=== PATIENT | male | born 1960 | race African-American/Black ===

== ENCOUNTER 2021-12-10 23:42 | Emergency (ER) | payer OTHER ==
[~2021-12-10] VITALS: Ht 182.9 cm; Wt 113.4 kg
[2021-12-10 23:57] LABS: BASOPHILS % (AUTO) 0.9 % (0.0-5.0); EOSINOPHILS % (AUTO) 3.4 % (0.0-8.0); HEMATOCRIT 45.1 % (42-54); LYMPHOCYTES % (AUTO) 32.9 % (21.0-51.0); MEAN CORPUSCULAR HEMOGLOBIN 28.9 pg (27.0-33.0); MEAN CORPUSCULAR HGB CONC 32.2 g/dL (32.0-36.0); MEAN CORPUSCULAR VOLUME 89.8 fL (79-99); MONOCYTES % (AUTO) 8.7 % (3.0-13.0); NEUTROPHILS % (AUTO) 53.9 % (40.0-77.0); PLATELET COUNT (AUTO) 177 K/uL (130-400); RED BLOOD CELL COUNT(AUTO) 5.02 MIL/uL (4.50-6.20); WHITE BLOOD COUNT (AUTO) 8.8 K/uL (4.8-10.8)
[2021-12-11 00:06] LABS: CREATININE 1.3 mg/dL (0.5-1.5); POTASSIUM 3.7 mmol/L (3.5-5.1)
[2021-12-11 00:10] LABS: ALBUMIN 3.9 g/dL (3.5-5.0); BILIRUBIN,TOTAL 0.3 mg/dL (0.2-1.0); TOTAL PROTEIN, SERUM 7.5 g/dL (6.0-8.3)
[2021-12-11 00:28] LABS: B-TYPE NATRIURETIC PEPTIDE 18 pg/mL (0-100)
[2021-12-11] MEDS ORDERED: MORPHINE 2 MG SYG IVP ONE (04:00)
[2021-12-11] MEDS ORDERED: FUROSEMIDE 40MG VIAL IV ONE (04:00)
[2021-12-11] MEDS ORDERED: IOHEXOL 350 MG/ML 100ML INFUS..BTL IV ONE (05:46)
[2021-12-11 06:41] VITALS: BP 118/82
[2021-12-11] MEDS ORDERED: ONDA4TAB10 PO (06:47)
[2021-12-11] MEDS ORDERED: OMEP20TA2 PO (06:47)
== END 2021-12-11 07:40 | disposition home or self-care (01) ==
LOC: EDH 23:42
DX: R10.9 Unspecified abdominal pain (principal); M79.89 Other specified soft tissue disorders; Z20.822 Contact with and (suspected) exposure to COVID-19; I11.0 Hypertensive heart disease with heart failure; I50.9 Heart failure, unspecified; E11.9 Type 2 diabetes mellitus without complications; F17.200 Nicotine dependence, unspecified, uncomplicated; Z98.890 Other specified postprocedural states
CPT/HCPCS: 36415 ×2; 71045; 71275; 74176; 80053; 83880; 84484 ×2; 85025; 85378; 87635; 87804 ×2; 93005 ×2; 96374; 96375; 99285; C9803; J1940; Q9967

== ENCOUNTER 2022-09-07 10:03 | Emergency (ER) | payer BC ==
[~2022-09-07] VITALS: Ht 182.9 cm; Wt 94.8 kg
[~2022-09-07 10:03] MED LIST: OMEP20TA2 PO; ONDA4TAB10 PO
[2022-09-07 10:33] LABS: APPEARANCE,URINE CLEAR (CLEAR); BILIRUBIN,URINE NEGATIVE (NEGATIVE); COLOR,URINE YELLOW (YELLOW); GLUCOSE, URINE (UA) NEGATIVE (NEGATIVE); KETONES,URINE NEGATIVE (NEGATIVE); LEUKOCYTE ESTERASE ,URINE NEGATIVE Leu/uL (NEGATIVE); NITRATE,URINE NEGATIVE (NEGATIVE); OCCULT BLOOD,URINE NEGATIVE (NEGATIVE); PROTEIN,URINE NEGATIVE (NEGATIVE); UROBILINOGEN,URINE 0.2 mg/dL (0.2-1.0)
[2022-09-07 10:36] LABS: HEMATOCRIT 46.3 % (42-54); MEAN CORPUSCULAR HEMOGLOBIN 28.7 pg (27.0-33.0); MEAN CORPUSCULAR HGB CONC 32.4 g/dL (32.0-36.0); MEAN CORPUSCULAR VOLUME 88.5 fL (79-99); PLATELET COUNT (AUTO) 169 K/uL (130-400); RED BLOOD CELL COUNT(AUTO) 5.23 MIL/uL (4.50-6.20); RED CELL DISTRIBUTION WIDTH 15.7 % (11.0-15.5); WHITE BLOOD COUNT (AUTO) 6.4 K/uL (4.8-10.8)
[2022-09-07 10:45] LABS: CREATININE 1.1 mg/dL (0.5-1.5); POTASSIUM 5.3 mmol/L (3.5-5.1)
[2022-09-07 10:50] LABS: ALBUMIN 3.9 g/dL (3.5-5.0); TOTAL PROTEIN, SERUM 7.8 g/dL (6.0-8.3)
[2022-09-07] MEDS ORDERED: ACETAMINOPHEN 500 MG TABLET PO ONE (11:00)
[2022-09-07 11:13] LABS: BASOPHILS % (MANUAL) 1 % (0-2); EOSINOPHILS % (MANUAL) 4 % (1-6); LYMPHOCYTES % (MANUAL) 34 % (22-44); MAN.DIFF COMMENT-IMPRESSION MANUAL DIFFERENTIAL; MONOCYTES % (MANUAL) 5 % (2-9); PLATELET MORPHOLOGY COMMENT ADEQUATE; SEGMENTED NEUTROPHILS % 56 % (40-70)
[2022-09-07 11:16] LABS: CREATINE KINASE, TOTAL 194 U/L (21-232)
[2022-09-07 11:44] LABS: CRP QUANTITATIVE < 2.00 mg/L (0.00-9.0)
[2022-09-07 13:33] VITALS: BP 140/90
[2022-09-07] MEDS ORDERED: IBUP-2077 PO (13:40)
== END 2022-09-07 14:00 | disposition home or self-care (01) ==
LOC: EDH 10:03
DX: M13.88 Other specified arthritis, other site (principal); M79.631 Pain in right forearm; I11.0 Hypertensive heart disease with heart failure; I50.9 Heart failure, unspecified; E11.9 Type 2 diabetes mellitus without complications; F17.200 Nicotine dependence, unspecified, uncomplicated; Z83.3 Family history of diabetes mellitus; Z95.810 Presence of automatic (implantable) cardiac defibrillator; Z79.899 Other long term (current) drug therapy
CPT/HCPCS: 36415; 71045; 71250; 73090; 73130; 80053; 81003; 82550; 83735; 84484; 85025; 85651; 86140

== ENCOUNTER 2024-06-03 08:36 | Inpatient (IN) | payer BC, OTHER ==
[2024-06-03] VITALS (9 sets, daily range): BP systolic 149–165; BP diastolic 83–98; PULSE 80–92; RESP 18–24; TEMP 97.7; O2SAT 93–95
[~2024-06-03] VITALS: Ht 177.8 cm; Wt 95.3 kg
[~2024-06-03 08:36] MED LIST changes: +IBUP-2077 PO; +ONDA-243 PO; -ONDA4TAB10 PO
--- NOTE | 2024-06-03 09:04 | ERN ---
ED Note History of Present Illness Stated Complaint: COUGH Chief Complaint: Cough Time Seen by MD: 08:39 Dictation: This 63-year-old male with a history of diabetes, hypertension hyperlipidemia and an AICD placed for sudden presents in the emergency department complai aracely of one week of body aches, cough and congestion tactile fever shortness of breath nausea and swelling of the legs. He feels dizzy and states he is not eating well. Urine output is diminished. The sputum is green. He has been constipated. He did do some cocaine yesterday. He says it numbs him up and eases the discomfort. He denies any vomiting or diarrhea. There was no rash. His chest pain is associated with cough. He does note wheezing and shortness of breath. The patient does not take any routine medications for his medical problems. He does not have a local physician. The patient lives in a trailer. He lives with family members but his brother apparently was recently hospitalized. Unrelated complaints. Patient does smoke cigarettes drink alcohol and uses cocaine p.r.n. Allergies: Coded Allergies: varenicline (Unverified Allergy, Unknown, 09/07/22) Home Meds Active Scripts Ibuprofen (Ibuprofen 800 mg Tab) 800 Mg Tab, 800 MG PO Q8H PRN for PAIN, #30 TAB 0 Refills Prov:SINGH LIZARRAGA MD 09/07/22 Omeprazole Magnesium (Prilosec Otc) 20 Mg Tablet.dr, 20 MG PO DAILY, #30 TAB Prov:DEMETRA LOYA MD 12/11/21 Ondansetron (Ondansetron Odt) 4 Mg Tab.rapdis, 8 MG PO Q8H PRN for NAUSEA/VOMITING, #20 TAB Prov:DEMETRA LOYA MD 12/11/21 Past Medical History Past Medical History: Diabetes-Type II, High Cholesterol, Hypertension Surgical History: Pacer/AICD Family History: DM, HTN Social History: Smokers Review of System Dictation All pertinent systems reviewed, negative except as documented in the HPI The ROS is obtained from patient GENERAL/CONSTITUTIONAL: Negative except as documented in HPI. ENT: Negative except as documented in HPI. CARDIOVASCULAR: Negative except as documented in HPI. RESPIRATORY: Negative except as documented in HPI. GASTROINTESTINAL: Negative except as documented in HPI. GENITOURINARY: Negative except as documented in HPI. MUSCULOSKELETAL: Negative except as documented in HPI. SKIN: Negative except as documented in HPI. NEUROLOGIC: Negative except as documented in HPI. Initial Vital Sign VS Vital Signs Date Time Temp Pulse Resp B/P (MAP) Pulse Ox O2 Delivery O2 Flow Rate FiO2 06/03/24 08:38 99.0 92 19 140/84 98 Room Air 0 06/03/24 08:38 21 Physical Exam Dictation VITAL SIGNS: note is made of triage vital signs CONSTITUTIONAL: This is a very uncomfortable constantly coughing gentleman who seems dyspneic due to cough. He is awake, alert, and appropriately interactive. HEAD: Normocephalic, Atraumatic. EYES: Periorbital areas with no swelling, redness, or edema. Lids and lashes are normal. Conjunctival injection is absent. Sclera anicteric. Pupils equal, round, reactive to light. ENT: No nasal discharge noted. Posterior pharynx is without exudate, redness, swelling, masses, or evidence of obstruction. Uvula midline. Mucous membranes dry. Voice is hoarse consistent with laryngitis NECK: Trachea midline, no masses palpated, and no cervical lymphadenopathy. No swelling. Supple, full range of motion without nuchal rigidity. No vertebral point tenderness. No meningismus. CHEST/AXILLA: Normal chest wall appearance and motion. No tenderness. No crepitus. CV: Normal rate, regular rhythm. No murmur. Trace ankle edema. RESPIRATORY:Respiratory rate is normal. Bilateral equal breath sounds with good airflow. Wheezing is noted. No increased work of breathing, no retractions. ABDOMEN: Inspection normal. No distention is appreciated. Bowel sounds are normal. No mass or organomegaly is appreciated. There is no tenderness. No rebound. No rigidity. No voluntary or involuntary guarding. BACK: Inspection is normal. No midline tenderness is appreciated. The patient appears comfortable when moving. : No CVA tenderness or bladder tenderness. SKIN: Warm, dry, with normal turgor. Capillary refill less than 3 seconds. Normal color.No rash. No cellulitis or abscess. No evidence of acute injury. MS/Extremity: There is no calf tenderness. Baseline range of motion is noted in all 4 extremities. There are no deformities. NEURO: Awake and alert, lucid. Facies symmetric and speech is clear. Motor strength 5/5 in all extremities. Sensory grossly intact. PSYCH: Patient is appropriately attentive and cooperative without evidence of hallucination. Results (Laboratory/Radiology) Laboratory/Radiology Laboratory Tests Test 06/03/24 08:51 06/03/24 09:02 Influenza Type A Antigen Negative For Type A Influenza Type B Antigen Negative For Type B SARS-CoV-2, RNA, NAAT NEGATIVE SARS CoV-2 Group A Streptococcus Rapid positive (NEGATIVE) *A White Blood Count 9.0 K/uL (4.8-10.8) Red Blood Count 4.67 MIL/uL (4.50-6.20) Hemoglobin 13.5 g/dL (14.0-18.0) L Hematocrit 40.9 % (42-54) L Mean Corpuscular Volume 87.6 fL (79-99) Mean Corpuscular Hemoglobin 28.9 pg (27.0-33.0) Mean Corpuscular Hemoglobin Concent 33.0 g/dL (32.0-36.0) Red Cell Distribution Width 14.6 % (11.0-15.5) Platelet Count 229 K/uL (130-400) Mean Platelet Volume 9.4 fL (7.5-10.5) Immature Granulocyte % (Auto) 1.2 % (0-1) H Neutrophils (%) (Auto) 62.2 % (40.0-77.0) Lymphocytes (%) (Auto) 18.6 % (21.0-51.0) L Monocytes (%) (Auto) 15.7 % (3.0-13.0) H Eosinophils (%) (Auto) 1.7 % (0.0-8.0) Basophils (%) (Auto) 0.6 % (0.0-5.0) Neutrophils # (Auto) 5.6 K/uL (1.8-7.7) Lymphocytes # (Auto) 1.7 K/uL (1.0-4.8) Monocytes # (Auto) 1.4 K/uL (0.1-1.0) H Eosinophils # (Auto) 0.15 K/uL (0.00-0.70) Basophils # (Auto) 0.05 K/uL (0.00-0.20) Absolute Immature Granulocyte (auto 0.11 K/uL (0-1) Nucleated Red Blood Cells 0.0 % (0.0-0.19) White Cell Morphology Comment See comments Sodium Level 141 mmol/L (136-145) Potassium Level 3.5 mmol/L (3.5-5.1) Chloride Level 103 mmol/L (101-111) Carbon Dioxide Level 28 mmol/L (21-32) Blood Urea Nitrogen 11 mg/dL (7-18) Creatinine 1.0 mg/dL (0.5-1.3) Glomerular Filtration Rate Calc 85 mL/min (>90) Random Glucose 128 mg/dL (70-105) H Total Calcium 9.2 mg/dL (8.5-10.1) Total Bilirubin 0.4 mg/dL (0.2-1.0) Direct Bilirubin 0.1 mg/dL (0.0-0.3) Aspartate Amino Transf (AST/SGOT) 43 U/L (10-37) H Alanine Aminotransferase (ALT/SGPT) 57 U/L (12-78) Alkaline Phosphatase 71 U/L (50-136) Troponin I High Sensitivity 6 ng/L (4-75) B-Type Natriuretic Peptide 55 pg/mL (0-100) Total Protein 7.7 g/dL (6.0-8.3) Albumin 2.8 g/dL (3.5-5.0) L Labs Reviewed?: Yes EKG Comment: Time reviewed: 9:07 a.m. EKG number; 1 Rate and rhythm: Sinus rhythm at 83 beats per minute [place]:normal Morphology:Normal OR interval: normal QT interval: normal ST/[place]: normal Impression: normal sinus rhythm without STEMI or ectopy Comparison EKG: none EKG INTERPRETATION by Dr. Singh Lizarraga ED Course ED Course Orders Procedure Category Date Status Time Covid Rna Naat LAB 06/03/24 Complete 08:48 Rapid (Group A Strep) LAB 06/03/24 Complete 08:48 Influenza Type A & B, LAB 06/03/24 Complete Rapid 08:48 12 Lead Ekg Tracing- EKG 06/03/24 Complete Technical 08:57 Cbc With Differential LAB 06/03/24 Complete 08:57 B-Type Natriuretic LAB 06/03/24 Complete Peptide 08:57 Basic Metabolic Panel LAB 06/03/24 Complete 08:57 Hepatic Function Panel LAB 06/03/24 Complete 08:57 Troponin I High LAB 06/03/24 Complete Sensitivity 08:57 Chest 1vw RAD 06/03/24 Resulted 08:57 Ipratropium/Albuterol PHA 06/03/24 Complete Neb (Duoneb) 09:00 Benzonatate 100 Mg PHA 06/03/24 Complete Capsule (Tessalon 100 09:00 Ceftriaxone 1g Vial PHA 06/03/24 Complete (Rocephine 1g Inj) 10:30 Current Medications Medications (Trade) Dose Ordered Sig/Rigo Route PRN Reason Start Time Stop Time Status Last Admin Dose Admin Albuterol (DUOneb) 1 UDVIAL ONCE ONCE IH 06/03/24 09:00 06/03/24 09:01 DC 06/03/24 09:11 Benzonatate (Tessalon 100mg Caps) 200 mg ONCE ONCE PO 06/03/24 09:00 06/03/24 09:01 DC 06/03/24 09:07 Ceftriaxone Sodium (ROCEphine 1G INJ) 1 gm ONCE ONCE IVPB 06/03/24 10:30 06/03/24 10:31 DC 06/03/24 10:16 Vital Signs Date Time Temp Pulse Resp B/P (MAP) Pulse Ox O2 Delivery O2 Flow Rate FiO2 06/03/24 10:36 98.8 91 18 151/88 94 Room Air* 0 21 06/03/24 10:29 91 18 149/98 94 Room Air* 0 21 06/03/24 09:14 92 24 06/03/24 08:38 99.0 92 19 140/84 97 Room Air* 0 21 06/03/24 08:38 99.0 92 19 140/84 98 Room Air 0 Medical Decision Making MDM INITIAL IMPRESSION Initial history and physical concerning for viral infection, pulmonary injury due to use of cocaine, pneumonia, congestive heart failure, Contributing medical problems: Patient does have untreated medical problems increasing his risk for cardiovascular disease I have reviewed the triage nursing notes and vital signs. O2 saturation is reported to be normal. There was no tachycardia or fever Initial plan: Laboratory screening x-ray symptomatic therapy for intractable cough DATA REVIEW I have reviewed additional NN, repeat VS, and monitoring where indicated. Heart rate, blood pressure, and O2 saturation are acceptable. Vanessa diagnostic results: Patient had a positive strep and has a blood sugar of 128. Otherwise labs are unremarkable but there is a left-sided pneumonia Other independent historian: none Review of external data: None. ED COURSE Interventions: Patient was started on antibiotics and given DuoNeb with improvement. Reassessment: O2 sats remaining stable DISPOSITION Final diagnostic impression: Strep pneumonia I discussed my findings, clinical impression and treatment recommendations with the patient. I have reviewed the social factors contributing to the patient's presentation and disposition planning. My final plan for disposition was made based upon clinical findings, response to treatment and discussion with the patient regarding management options. At 11:20 a.m. I discussed the case with the the hospitalist to arrange admission Hospitalization is indicated due to high risk of short term progression, complication, morbidity or mortality related to the current diagnosis The patient will be admitted for further management of pneumonia The patient and family have been advised regarding the reason for admission Questions were invited and answered in layman's terms. This dictation was prepared using medical voice recognition software. Occasional voice recognition errors may occur. When identified, these errors have been corrected. While every attempt is made to correct errors during dictation, errors may still exist. DX & DISP Disposition: Observation Decision to Admit Date: Jun 03, 2024 Decision to Admit Time: 11:58 Departure Impression: Primary Impression: Streptococcal pneumonia Additional Impression: Wheezing Condition: Stable Referrals: SELF,REFERRAL (PCP) SINGH LIZARRAGA MD Jun 03, 2024 09:04
--- NOTE | 2024-06-03 09:05 | EKG ---
[facility] Test Date: 2024-06-03 Test Time: 08:59:30 Pat Name: LOLY HARTLEY Department: [facility] Room: ED Gender: M Telesales Specialist: [id number] : 1960 Requested By: SINGH LIZARRAGA Order Number: [id number] Reading MD: Jostin Patterson Measurements Intervals [place] Rate: 83 P: 66 AR: 158 QRS: -1 QRSD: 82 T: 19 QT: 387 QTc: 456 Interpretive Statements Sinus rhythm Compared to ECG 12/11/2021 05:10:31 Atrial-paced complex(es) or rhythm no longer present Ventricular-paced complex(es) or rhythm no longer present Electronically Signed On 06-03-2024 15:46:31 [employer]NATIONAL MARKETING INTERN by Jostin Patterson Please click the below link to view image of tracing.
[2024-06-03] MEDS: BENZONATATE 100 MG CAPSULE PO ONE (09:07)
[2024-06-03 09:11] LABS: BASOPHILS # (AUTO) 0.05 K/uL (0.00-0.20); BASOPHILS % (AUTO) 0.6 % (0.0-5.0); EOSINOPHILS # (AUTO) 0.15 K/uL (0.00-0.70); EOSINOPHILS % (AUTO) 1.7 % (0.0-8.0); HEMATOCRIT 40.9 % (42-54); IMMATURE GRANULOCYTE ABSOLUTE 0.11 K/uL (0-1); LYMPHOCYTES # (AUTO) 1.7 K/uL (1.0-4.8); LYMPHOCYTES % (AUTO) 18.6 % (21.0-51.0); MEAN CORPUSCULAR HEMOGLOBIN 28.9 pg (27.0-33.0); MEAN CORPUSCULAR VOLUME 87.6 fL (79-99); MONOCYTES # (AUTO) 1.4 K/uL (0.1-1.0); MONOCYTES % (AUTO) 15.7 % (3.0-13.0); NEUTROPHILS # (AUTO) 5.6 K/uL (1.8-7.7); NEUTROPHILS % (AUTO) 62.2 % (40.0-77.0); PLATELET COUNT (AUTO) 229 K/uL (130-400); RED BLOOD CELL COUNT(AUTO) 4.67 MIL/uL (4.50-6.20); RED CELL DISTRIBUTION WIDTH 14.6 % (11.0-15.5)
[2024-06-03] MEDS: IpraTROPium/alBUTERol SULFATE 3 ML SOLUTION IH ONE (09:11)
[2024-06-03 09:19] LABS: POTASSIUM 3.5 mmol/L (3.5-5.1)
[2024-06-03 09:25] LABS: SARS-CoV-2, RNA, NAAT NEGATIVE SARS CoV-2 (NEGATIVE)
[2024-06-03 09:28] LABS: ALBUMIN 2.8 g/dL (3.5-5.0); BILIRUBIN,DIRECT 0.1 mg/dL (0.0-0.3); BILIRUBIN,TOTAL 0.4 mg/dL (0.2-1.0); TOTAL PROTEIN, SERUM 7.7 g/dL (6.0-8.3)
[2024-06-03 09:29] LABS: INFLUENZA TYPE A Negative For Type A (NEGATIVE); INFLUENZA TYPE B Negative For Type B (NEGATIVE)
[2024-06-03 09:38] LABS: B-TYPE NATRIURETIC PEPTIDE 55 pg/mL (0-100)
[2024-06-03 10:03] LABS: RAPID GROUP A STREP positive (NEGATIVE)
[2024-06-03] MEDS: cefTRIAXone 1G VIAL IVPB ONE (10:16)
--- NOTE | 2024-06-03 10:20 | HMCIMG ---
CHEST 1VW REASON: cough COMPARISON: 09/07/2022 FINDINGS: There is left lower lobe infiltrate consistent with pneumonia. There is mild patchy infiltrate in the right lung base. Heart size is normal. There is no vascular congestion or pleural effusion. Pacemaker is noted. IMPRESSION: 1. Left lobe infiltrate consistent with pneumonia, there is patchy infiltrate in the right base as well.
[2024-06-03] MEDS ORDERED: acetaMINOPHEN 325 MG TAB PO PRN (13:00)
[2024-06-03] MEDS ORDERED: NITROGLYCERIN 0.4 MG SL TAB SL PRN (13:00)
[2024-06-03] MEDS ORDERED: guaiFENesin-DM 200/20MG 10ML PO PRN (13:00)
[2024-06-03] MEDS: cefTRIAXone 1G VIAL IV SCH (13:00)
[2024-06-03] MEDS ORDERED: LACTULOSE 20 GM/30 ML UDCUP PO PRN (13:00)
[2024-06-03] MEDS: AZITHROMYCIN 500MG+NS 250ML 250 ML IV SCH (13:34)
[2024-06-03] MEDS: ALBUTEROL 0.083% 2.5 MG/3 ML INH IH SCH (14:00)
[2024-06-03] MEDS: BENZONATATE 100 MG CAPSULE PO SCH (14:02)
[2024-06-03] MEDS: acetaMINOPHEN 325 MG TAB PO PRN (14:35)
[2024-06-03] MEDS ORDERED: DEXTROSE 50%-WATER 50 ML DISP.SYRIN IV PRN (15:00)
[2024-06-03] MEDS ORDERED: GLUCAGON 1MG KIT 1 MG ML IM PRN (15:00)
--- NOTE | 2024-06-03 16:15 | HP ---
[facility] HISTORY AND PHYSICAL Date of Service: Jun 03, 2024 Time of Service: 15:00 HISTORY OF PRESENT ILLNESS: The patient is a 63-year-old male with a past medical history of type 2 diabetes mellitus, hypertension, hyperlipidemia, chronic obstructive pulmonary disease, chronic smoker, AICD placement in September 21, 2017, bipolar disorder presented to emergency department via ambulance with a chief complaints of cough, fever, and body aches. He has been experiencing fever with chills, headaches, and prod uctive sputum greenish in color since past 2 days. He also reported chest and shoulder tightness radiating to the back which is making him difficult to deep breathe. He also has been feeling dizzy and is not eating well. Per patient, he had some cocaine yesterday as cocaine numbs him up and eases that is discomfort. He denies any vomiting, diarrhea, episodes of fall. On Present ation, he was noted afebrile and vitals were within normal limits. Chest x-ray showed left lobe infiltrate consistent with pneumonia and patchy infiltrate in the right base as well. Additionally, he was tested positive for group a Streptococcus. Laboratory findings including CBC, BMP did not show any abnormalities. The patient was examined in ED 12. He is lying on the bed with his daughter on bedside. He is in the state of somnolence, has not been providing full answers, saying that he is tired and has a chest pressure. He also mumbles that he has been having some blood in the urine. The daughter is not aware of his medical c onditions and she attempted to reach out to the relatives in order to get his medical history, without any successful attempt. Has been noncompliant with his office visits lately, misses the doses of the routine medications and sent a text message to his brother yesterday saying that he does not feel good and has infection in the foot. The patient lives alone in the trailer and has a stumbling gait since past 1-2 weeks. Very limited history was able to collect from the patient. The patient will be admitted on the medical surgical floor for the management of streptococcal pneumonia. REVIEW OF SYSTEMS CONSTITUTIONAL: c/o fever, chills, no night sweats. No unintentional weight loss reported. NEUROLOGICAL: Denies headache, amaurosis fugax, motor weakness, sensory deficit, vertigo/spinning sensation, gait abnormalities, or tremors. ENT: No hearing loss, otalgia, otorrhea, rhinitis, rhinorrhea, hoarseness, or sore throat. CARDIOVASCULAR: Denies any exertional angina, dyspnea on exertion, orthopnea, paroxysmal nocturnal dyspnea, palpitations, life-threatening arrhythmias, claudication. PULMONARY: c/o shortness of breath, cough, phlegm/sputum, no hemoptysis, pleuritic chest pain. SLEEP: Denies morning headaches, daytime somnolence or napping. Denies difficulty falling asleep, staying asleep, waking from sleep. Denies knowledge of snoring. GASTROINTESTINAL: Denies any type of dysphagia to either liquids or solids. D enies nausea, vomiting, pyrosis, early satiety, abdominal pain, diarrhea, constipation, or changes in stool consistency or caliber. Denies coffee-ground emesis, hematemesis, hematochezia, or melanotic stools. GENITOURINARY: Denies frequency, urgency, nocturia, hematuria or incontinence (Storage/Irritative symptoms.) Low urinary stream, straining to void, urinary intermittency or hesitancy, splitting of the voiding stream, terminal dribbling. ENDOCRINOLOGIC: Denies polyuria, polydipsia, polyphagia or heat/cold intolerances. HEMATOLOGIC: Denies thrombophilia/previous clots, or coagulopathy/bleeding disorders. ONCOLOGIC: Denies personal history of malignancy. DERMATOLOGIC: Denies rashes or pruritus. PSYCHIATRIC: Denies any suicidal or homicidal ideation. Denies hallucinations. PAST MEDICAL HISTORY: Type 2 diabetes Mellitus Hypertension Hyperlipidemia AICD placement in September 2017 Chronic obstructive pulmonary disease Bipolar disorder PAST SURGICAL HISTORY: AICD placement in September 2017 PAST SOCIAL HISTORY: Chronic cigarette smoker, 1 PPD since age of 21 Social drinker On and off cocaine user FAMILY HISTORY: The patient and daughter could not provide any significant past medical history Coded Allergies: varenicline (Unverified Allergy, Unknown, 09/07/22) PHYSICAL EXAM GENERAL APPEARANCE: Somnolent, slightly disoriented, in no acute cardiopulmonary distress. NEUROLOGICAL: Cranial nerves II-XII grossly intact. Motor is 5/5 in bilateral upper and lower extremities proximal to distal. No sensory deficits. HEENT: Face is symmetric. Pupils are equal and reactive. Extraocular movements are intact. NECK: Supple. No JVD. No thyromegaly. No submental, submandibular, pre-/postauricular, occipital or supraclavicular lymphadenopathy. CHEST: Slightly Decreased heart sounds on left lower lobe, Normal chest expansion. No Telemetry. LUNGS: Absence of any rales, rhonchi or any wheezing. CARDIOVASCULAR: Regular. S1 and S2 normal. No appreciable rubs, murmurs or gallops. ABDOMEN: Soft, nontender, and nondistended. There is no rebound, voluntary guarding, or rigidity. : Deferred. No [place]. EXTREMITIES: Non-edematous and not cyanotic. No clubbing. Good capillary refill. SKIN: crackled nails on bilateral lower extremities, dry feets. Vital Sign (Last 24 Hours) 06/03/24 14:39 Temp 98.8 Pulse 91 Resp 20 B/P (MAP) 149/96 Pulse Ox 96 O2 Delivery Room Air* O2 Flow Rate 0 FiO2 21 LABS: Laboratory: Test 06/03/24 13:58 06/03/24 09:02 06/03/24 08:51 Range/Units Whole Blood Glucose 261 H 70-110 MG/DL White Blood Count 9.0 4.8-10.8 K/uL Red Blood Count 4.67 4.50-6.20 MIL/uL Hemoglobin 13.5 L 14.0-18.0 g/dL Hematocrit 40.9 L 42-54 % Mean Corpuscular Volume 87.6 79-99 fL Mean Corpuscular Hemoglobin 28.9 27.0-33.0 pg Mean Corpuscular Hemoglobin Concent 33.0 32.0-36.0 g/dL Red Cell Distribution Width 14.6 11.0-15.5 % Platelet Count 229 130-400 K/uL Mean Platelet Volume 9.4 7.5-10.5 fL Immature Granulocyte % (Auto) 1.2 H 0-1 % Neutrophils (%) (Auto) 62.2 40.0-77.0 % Lymphocytes (%) (Auto) 18.6 L 21.0-51.0 % Monocytes (%) (Auto) 15.7 H 3.0-13.0 % Eosinophils (%) (Auto) 1.7 0.0-8.0 % Basophils (%) (Auto) 0.6 0.0-5.0 % Neutrophils # (Auto) 5.6 1.8-7.7 K/uL Lymphocytes # (Auto) 1.7 1.0-4.8 K/uL Monocytes # (Auto) 1.4 H 0.1-1.0 K/uL Eosinophils # (Auto) 0.15 0.00-0.70 K/uL Basophils # (Auto) 0.05 0.00-0.20 K/uL Absolute Immature Granulocyte (auto 0.11 0-1 K/uL Nucleated Red Blood Cells 0.0 0.0-0.19 % White Cell Morphology Comment See comments Sodium Level 141 136-145 mmol/L Potassium Level 3.5 3.5-5.1 mmol/L Chloride Level 103 101-111 mmol/L Carbon Dioxide Level 28 21-32 mmol/L Blood Urea Nitrogen 11 7-18 mg/dL Creatinine 1.0 0.5-1.3 mg/dL Glomerular Filtration Rate Calc 85 >90 mL/min Random Glucose 128 H 70-105 mg/dL Total Calcium 9.2 8.5-10.1 mg/dL Total Bilirubin 0.4 0.2-1.0 mg/dL Direct Bilirubin 0.1 0.0-0.3 mg/dL Aspartate Amino Transf (AST/SGOT) 43 H 10-37 U/L Alanine Aminotransferase (ALT/SGPT) 57 12-78 U/L Alkaline Phosphatase 71 50-136 U/L Troponin I High Sensitivity 6 4-75 ng/L B-Type Natriuretic Peptide 55 0-100 pg/mL Total Protein 7.7 6.0-8.3 g/dL Albumin 2.8 L 3.5-5.0 g/dL Influenza Type A Antigen Negative For Type A NEGATIVE Influenza Type B Antigen Negative For Type B NEGATIVE SARS-CoV-2, RNA, NAAT NEGATIVE SARS CoV-2 NEGATIVE Group A Streptococcus Rapid positive *A NEGATIVE Current Medications Medications (Trade) Dose Ordered Sig/Rigo Route PRN Reason Start Time Stop Time Status Last Admin Dose Admin Acetaminophen (TYLenol 325MG TAB) 650 mg Q4H PRN PO MILD PAIN (1-3) 06/03/24 13:00 07/03/24 12:59 06/03/24 14:35 650 MG Acetaminophen (TYLenol 325MG TAB) 650 mg Q6H PRN PO TEMPERATURE GREATER THAN 101.5 06/03/24 13:00 07/03/24 12:59 Albuterol Sulfate (Proventil 0.083% 2.5mg/3ml) 2.5 mg [id number] IH 06/03/24 14:00 07/03/24 13:59 06/03/24 14:00 2.5 MG Azithromycin 250 ml @ 250 mls/hr Q24H IV 06/03/24 13:00 06/13/24 12:59 06/03/24 13:34 250 MLS/HR Benzonatate (Tessalon 100mg Caps) 200 mg TID PO 06/03/24 14:00 07/03/24 13:59 06/03/24 14:02 200 MG Ceftriaxone Sodium (ROCEphine 1G INJ) 1 gm Q24H IV 06/03/24 13:00 06/13/24 12:59 Dextrose (D50w) 50 ml AD PRN IV HYPOGLYCEMIA PROTOCOL 06/03/24 15:00 07/03/24 14:59 Enoxaparin Sodium (Lovenox) 30 mg DAILY SQ 06/04/24 09:00 07/04/24 08:59 Famotidine (Pepcid 20mg Tab) 20 mg BID PO 06/03/24 21:00 07/03/24 20:59 Glucagon (Glucagon 1mg Kit) 1 mg AD PRN IM HYPOGLYCEMIA PROTOCOL 06/03/24 15:00 07/03/24 14:59 Guaifenesin/ Dextromethorphan (RobiTUSSin DM 200/20MG 10ML) 10 ml Q4H PRN PO COUGH 06/03/24 13:00 07/03/24 12:59 Insulin Human Regular (humuLIN R 100 UNIT/ML 3ML) INSULIN SLIDING SCAL... ACHS SQ 06/03/24 16:30 07/03/24 16:29 Lactulose (Constulose 20gm/ 30ml Udcup) 20 gm BID PRN PO CONSTIPATION 06/03/24 13:00 07/03/24 12:59 Morphine Sulfate (morPHINE 2MG SYG) 2 mg Q4H PRN IV MODERATE PAIN (4-6) 06/03/24 13:00 06/10/24 12:59 Nitroglycerin (Nitrostat) 0.4 mg PROTOCOL PRN SL CHEST PAIN 06/03/24 13:00 07/03/24 12:59 DIAGNOSTICS / RADIOLOGY: [place] [id number] [id number] IMAGING REPORT Signed PATIENT: OLLY HARTLEY MR#: [id number] : 1960 SEX: M AGE: 63 LOCATION: [facility] ORDER 8 STATUS: REG ER REPORT#: [id number] SERVICE REASON: cough ORDERING PHYSICIAN: SINGH LIZARRAGA MD PROCEDURE: CXR1VW - CHEST 1VW CHEST 1VW REASON: cough COMPARISON: 09/07/2022 FINDINGS: There is left lower lobe infiltrate consistent with pneumonia. There is mild patchy infiltrate in the right lung base. Heart size is normal. There is no vascular congestion or pleural effusion. Pacemaker is noted. IMPRESSION: 1. Left lobe infiltrate consistent with pneumonia, there is patchy infiltrate in the right base as well. DICTATED BY: LONDON MCWILLIAMS MD DATE: 06/03/24 1017 ELECTRONICALLY SIGNED BY: LONDON MCWILLIAMS MD DATE: 06/03/24 1020 ASSESSMENT: Possible Community Acquired Pneumonia, POA Group A Streptococcal infection, POA Chronic obstructive pulmonary disease Metabolic encephalopathy Chronic smoker Hypertension Type 2 diabetes mellitus Hyperlipidemia Possible CHF, AICD placement in January 2018 PLAN: The patient will be admitted on the medical surgical floor Possible Community Acquired Pneumonia, POA Group A Streptococcal infection, POA Chronic obstructive pulmonary disease, POA * Start on Rocephin1 g IV Q 24 * Start on azithromycin 500 mg IV Q 24 * Gram stain with respiratory culture was ordered. Follow up when the results are available. * Albuterol breathing treatment q.4 p.r.n. for shortness of breath * Robitussin DM q.4 p.r.n. for cough * Tessalon 100 mg t.i.d. p.r.n. for cough * Aspiration precautions Type 2 diabetes mellitus * Start on insulin sliding scale for hyperglycemia * Hypoglycemia per protocol * Start on heart healthy diet * Monitor intake and output * Lactulose 20 g b.i.d. p.r.n. for constipation * Lovenox 30 mg subQ daily for DVT prophylaxis * Home medications are yet to reconciled. The nurse was informed to reconcile home medications. * Urinalysis and urine drug screening are pending. Follow up on the results are available * Morning labs: CBC, BMP, hemoglobin A1c We will monitor patient's symptoms vitals closely. We will plan disposition in 24-48 hours if the clinical condition improves. ADVANCED CARE PLANNING 1. Which of the following were discussed? Hospice Care - Yes / No Therapeutic options - Yes / No Advance Directives - Yes / No Other discussions - 2. Discussed with who? The patient's daughter 3. Voluntary nature of this service was explained to the patient? Yes / No 4. Amount of time spent - 25 minutes ATTESTATION BY PHYSICIAN I have seen and examined the patient. I reviewed the documentation, medical decision making, and treatment plan as noted by the resident provider above. I a gree with the findings and plan of care. Josette Garcia MD, MANALI MD Jun 03, 2024 16:15
[2024-06-03] MEDS: INSULIN humuLIN R 100 UNIT/ML 3ML SQ SCH (16:33)
--- NOTE | 2024-06-03 19:25 | NUR ---
REPORT GIVEN TO JULIO VICKERS AT THIS TIME.
[2024-06-03] MEDS: FAMOTIDINE 20MG TAB PO SCH (21:10)
[2024-06-03] MEDS: morPHINE 2 MG SYG IV PRN (21:38)
[2024-06-03 22:28] LABS: APPEARANCE,URINE CLEAR (CLEAR); BILIRUBIN,URINE NEGATIVE (NEGATIVE); COLOR,URINE YELLOW (YELLOW); GLUCOSE, URINE (UA) NEGATIVE (NEGATIVE); KETONES,URINE NEGATIVE (NEGATIVE); LEUKOCYTE ESTERASE ,URINE NEGATIVE Leu/uL (NEGATIVE); NITRATE,URINE NEGATIVE (NEGATIVE); OCCULT BLOOD,URINE NEGATIVE (NEGATIVE); PH,URINE 6.5 (5.0-8.0); PROTEIN,URINE 20 mg/dL (NEGATIVE); UROBILINOGEN,URINE 6 mg/dL (0.2-1.0)
[2024-06-03 22:30] LABS: ADD UA MICROSCOPIC YES
[2024-06-03 22:31] LABS: BACTERIA,URINE RARE /HPF (None Seen); MUCUS,URINE RARE LPF (None Seen); WBC,URINE 0-1 /HPF (0-1)
[2024-06-03 22:35] LABS: AMPHET/METH SCREEN,URINE NEGATIVE (NEGATIVE); BARBITURATE SCREEN, URINE NEGATIVE (NEGATIVE); BENZODIAZEPINES SCREEN,URINE NEGATIVE (NEGATIVE); CANNABINOID SCREEN,URINE NEGATIVE (NEGATIVE); COCAINE SCREEN,URINE POSITIVE (NEGATIVE); OPIATE SCREEN,URINE NEGATIVE (NEGATIVE); PHENCYCLIDINE SCREEN,URINE NEGATIVE (NEGATIVE)
[2024-06-04] VITALS (9 sets, daily range): BP systolic 145–158; BP diastolic 85–96; PULSE 81–100; RESP 17–21; TEMP 98.4–99.3; O2SAT 92–95
[2024-06-04 05:47] LABS: BASOPHILS # (AUTO) 0.06 K/uL (0.00-0.20); BASOPHILS % (AUTO) 0.7 % (0.0-5.0); EOSINOPHILS # (AUTO) 0.17 K/uL (0.00-0.70); EOSINOPHILS % (AUTO) 1.9 % (0.0-8.0); HEMATOCRIT 42.4 % (42-54); LYMPHOCYTES # (AUTO) 1.2 K/uL (1.0-4.8); LYMPHOCYTES % (AUTO) 13.4 % (21.0-51.0); MEAN CORPUSCULAR HEMOGLOBIN 28.7 pg (27.0-33.0); MEAN CORPUSCULAR VOLUME 86.9 fL (79-99); MONOCYTES # (AUTO) 0.9 K/uL (0.1-1.0); MONOCYTES % (AUTO) 9.5 % (3.0-13.0); NEUTROPHILS # (AUTO) 6.6 K/uL (1.8-7.7); NEUTROPHILS % (AUTO) 73.4 % (40.0-77.0); PLATELET COUNT (AUTO) 269 K/uL (130-400); RED BLOOD CELL COUNT(AUTO) 4.88 MIL/uL (4.50-6.20); RED CELL DISTRIBUTION WIDTH 14.8 % (11.0-15.5)
[2024-06-04 05:59] LABS: POTASSIUM 3.2 mmol/L (3.5-5.1)
[2024-06-04 06:08] LABS: HEMOGLOBIN A1C 6.4 % (4.0-6.0)
[2024-06-04] MEDS: ENOXAPARIN SODIUM 30 MG/0.3 ML SQ SCH (08:20)
[2024-06-04] MEDS ORDERED: LISINOPRIL 2.5 MG TABLET PO SCH (09:00)
--- NOTE | 2024-06-04 11:53 | PN ---
[facility] PROGRESS NOTE Date of Service: Jun 04, 2024 Time of Service: 11:34 SUBJECTIVE: The patient is a 63-year-old male with a past medical history of type 2 diabetes mellitus, hypertension, hyperlipidemia, chronic obstructive pulmonary disease, chronic smoker, AICD placement in September 21, 2017, bipolar disorder presented to emergency department via ambulance with a chief complaints of cough, fever, and body aches. He was experiencing fever with chills, headaches, and productive sputum greenish in color since past 2 days. He also reported chest and shoulder tightness radiating to the back which is making him difficult to deep breathe. He also has been feeling dizzy and is not eating well. Per patient, he had some cocaine as cocaine numbs him up and eases that is discomfort. Chest x-ray showed left lobe infiltrate consistent with pneumonia and patchy infiltrate in the right base as well. Additionally, he was tested positive for group a Streptococcus.He was in the state of somnolence in ED, said that he is tired and has a chest pressure. He also mumbles that he has been having some blood in the urine.Has been noncompliant with his office visits lately. The patient lives alone in the trailer and has a stumbling gait since past 1-2 weeks. Very limited history was able to collect from the patient. The patient was admitted on the medical surgical floor for the management of streptococcal pneumonia. 06/04/24- The patient was examined today at bedside. He is more alert, awake and oriented as compared to yesterday. His symptoms have been improved and he is breathing well on room air. He has noticed blood in the urine in the past, that has been on and off and also dribbles at night. Additionally, he is c/o neck pain since yesterday. He has been running slighly hypertensive with SBP in 140s. He does not see any PCP since his insurance changed and did not bother to figure out who falls under his insurance and asking for assistance. He says he has been ignoring the symptoms for 2 weeks and did not visit any provider as he is not the person who likes to see the doctor unless it is severe. Significant labs: Potassium 3.2, random blood glucose 213, toxicology positive for cocaine We will monitor his vitals, order PT evaluation today. Respiratory culture with gram stain is pending. REVIEW OF SYSTEMS CONSTITUTIONAL: c/o fever, chills, no night sweats. No unintentional weight loss reported. NEUROLOGICAL: Denies headache, amaurosis fugax, motor weakness, sensory deficit, vertigo/spinning sensation, gait abnormalities, or tremors. ENT: No hearing loss, otalgia, otorrhea, rhinitis, rhinorrhea, hoarseness, or sore throat. CARDIOVASCULAR: Denies any exertional angina, dyspnea on exertion, orthopnea, paroxysmal nocturnal dyspnea, palpitations, life-threatening arrhythmias, claudication. PULMONARY: c/o shortness of breath, cough, phlegm/sputum, no hemoptysis, pleuritic chest pain. SLEEP: Denies morning headaches, daytime somnolence or napping. Denies difficulty falling asleep, staying asleep, waking from sleep. Denies knowledge of snoring. GASTROINTESTINAL: Denies any type of dysphagia to either liquids or solids. Denies nausea, vomiting, pyrosis, early satiety, abdominal pain, diarrhea, constipation, or changes in stool consistency or caliber. Denies coffee-ground emesis, hematemesis, hematochezia, or melanotic stools. GENITOURINARY: Denies frequency, urgency, nocturia, hematuria or incontinence (Storage/Irritative symptoms.) Low urinary stream, straining to void, urinary intermittency or hesitancy, splitting of the voiding stream, terminal dribbling. ENDOCRINOLOGIC: Denies polyuria, polydipsia, polyphagia or heat/cold intolerances. HEMATOLOGIC: Denies thrombophilia/previous clots, or coagulopathy/bleeding disorders. ONCOLOGIC: Denies personal history of malignancy. DERMATOLOGIC: Denies rashes or pruritus. PSYCHIATRIC: Denies any suicidal or homicidal ideation. Denies hallucinations. PHYSICAL EXAM GENERAL APPEARANCE: Somnolent, slightly disoriented, in no acute cardiopulmonary distress. NEUROLOGICAL: Cranial nerves II-XII grossly intact. Motor is 5/5 in bilateral upper and lower extremities proximal to distal. No sensory deficits. HEENT: Face is symmetric. Pupils are equal and reactive. Extraocular movements are intact. NECK: Supple. No JVD. No thyromegaly. No submental, submandibular, pre- /postauricular, occipital or supraclavicular lymphadenopathy. CHEST: Slightly Decreased heart sounds on left lower lobe, Normal chest expansion. No Telemetry. LUNGS: Absence of any rales, rhonchi or any wheezing. CARDIOVASCULAR: Regular. S1 and S2 normal. No appreciable rubs, murmurs or gallops. ABDOMEN: Soft, nontender, and nondistended. There is no rebound, voluntary guarding, or rigidity. : Deferred. No Moreno. EXTREMITIES: Non-edematous and not cyanotic. No clubbing. Good capillary refill. SKIN: crackled nails on bilateral lower extremities, dry feets. Vital Signs (last 8hr) Date Time Temp Pulse Resp B/P (MAP) Pulse Ox O2 Delivery O2 Flow Rate FiO2 06/04/24 10:32 92 21 06/04/24 08:00 92 Room Air* 0 21 06/04/24 06:58 89 20 N/A Room Air 21 06/04/24 06:58 89 21 06/04/24 04:00 98.6 100 17 152/92 92 Room Air 21 LABS: Laboratory: Test 06/04/24 05:59 06/04/24 05:38 06/03/24 21:30 06/03/24 09:02 Range/Units Whole Blood Glucose 231 #H 70-110 MG/DL White Blood Count 9.0 4.8-10.8 K/uL Red Blood Count 4.88 4.50-6.20 MIL/uL Hemoglobin 14.0 14.0-18.0 g/dL Hematocrit 42.4 42-54 % Mean Corpuscular Volume 86.9 79-99 fL Mean Corpuscular Hemoglobin 28.7 27.0-33.0 pg Mean Corpuscular Hemoglobin Concent 33.0 32.0-36.0 g/dL Red Cell Distribution Width 14.8 11.0-15.5 % Platelet Count 269 130-400 K/uL Mean Platelet Volume 9.1 7.5-10.5 fL Immature Granulocyte % (Auto) 1.1 H 0-1 % Neutrophils (%) (Auto) 73.4 40.0-77.0 % Lymphocytes (%) (Auto) 13.4 L 21.0-51.0 % Monocytes (%) (Auto) 9.5 3.0-13.0 % Eosinophils (%) (Auto) 1.9 0.0-8.0 % Basophils (%) (Auto) 0.7 0.0-5.0 % Neutrophils # (Auto) 6.6 1.8-7.7 K/uL Lymphocytes # (Auto) 1.2 1.0-4.8 K/uL Monocytes # (Auto) 0.9 0.1-1.0 K/uL Eosinophils # (Auto) 0.17 0.00-0.70 K/uL Basophils # (Auto) 0.06 0.00-0.20 K/uL Absolute Immature Granulocyte (auto 0.10 0-1 K/uL Nucleated Red Blood Cells 0.0 0.0-0.19 % Sodium Level 142 136-145 mmol/L Potassium Level 3.2 L 3.5-5.1 mmol/L Chloride Level 105 101-111 mmol/L Carbon Dioxide Level 28 21-32 mmol/L Blood Urea Nitrogen 10 7-18 mg/dL Creatinine 1.0 0.5-1.3 mg/dL Glomerular Filtration Rate Calc 85 >90 mL/min Random Glucose 213 #H 70-105 mg/dL Hemoglobin A1c 6.4 H 4.0-6.0 % Estimated Average Glucose (eAG) 137 H 70-126 mg/dL Total Calcium 8.8 8.5-10.1 mg/dL Urine Color YELLOW YELLOW Urine Appearance CLEAR CLEAR Urine pH 6.5 5.0-8.0 Urine Specific [place] 1.018 1.001-1.031 Urine Protein 20 H NEGATIVE mg/dL Urine Glucose (UA) NEGATIVE NEGATIVE mg/dL Urine Ketones NEGATIVE NEGATIVE mg/dL Urine Occult Blood NEGATIVE NEGATIVE Urine Nitrate NEGATIVE NEGATIVE Urine Bilirubin NEGATIVE NEGATIVE mg/dL Urine Urobilinogen 6 H 0.2-1.0 mg/dL Urine Leukocyte Esterase NEGATIVE NEGATIVE Caprice/uL Urine RBC 6-10 H 0-1 /HPF Urine WBC 0-1 0-1 /HPF Urine Bacteria RARE None Seen /HPF Urine Opiates Screen NEGATIVE NEGATIVE Urine Barbiturates Screen NEGATIVE NEGATIVE Urine Phencyclidine Screen NEGATIVE NEGATIVE Urine Amphetamines Screen NEGATIVE NEGATIVE Urine Benzodiazepines Screen NEGATIVE NEGATIVE Urine Cocaine Screen POSITIVE H NEGATIVE Urine Marijuana (THC) Screen NEGATIVE NEGATIVE White Cell Morphology Comment See comments Total Bilirubin 0.4 0.2-1.0 mg/dL Direct Bilirubin 0.1 0.0-0.3 mg/dL Aspartate Amino Transf (AST/SGOT) 43 H 10-37 U/L Alanine Aminotransferase (ALT/SGPT) 57 12-78 U/L Alkaline Phosphatase 71 50-136 U/L Troponin I High Sensitivity 6 4-75 ng/L B-Type Natriuretic Peptide 55 0-100 pg/mL Total Protein 7.7 6.0-8.3 g/dL Albumin 2.8 L 3.5-5.0 g/dL Test 06/03/24 08:51 Range/Units Influenza Type A Antigen Negative For Type A NEGATIVE Influenza Type B Antigen Negative For Type B NEGATIVE SARS-CoV-2, RNA, NAAT NEGATIVE SARS CoV-2 NEGATIVE Group A Streptococcus Rapid positive *A NEGATIVE Current Medications Medications (Trade) Dose Ordered Sig/Rigo Route PRN Reason Start Time Stop Time Status Last Admin Dose Admin Acetaminophen (TYLenol 325MG TAB) 650 mg Q4H PRN PO MILD PAIN (1-3) 06/03/24 13:00 07/03/24 12:59 06/03/24 14:35 650 MG Acetaminophen (TYLenol 325MG TAB) 650 mg Q6H PRN PO TEMPERATURE GREATER THAN 101.5 06/03/24 13:00 07/03/24 12:59 Albuterol Sulfate (Proventil 0.083% 2.5mg/3ml) 2.5 mg [id number] 06/03/24 14:00 06/04/24 10:38 DC 06/04/24 10:32 2.5 MG Albuterol Sulfate (Proventil 0.083% 2.5mg/3ml) 2.5 mg [id number] IH 06/04/24 18:00 07/03/24 13:59 Azithromycin 250 ml @ 250 mls/hr Q24H IV 06/03/24 13:00 06/13/24 12:59 06/03/24 13:34 250 MLS/HR Benzonatate (Tessalon 100mg Caps) 200 mg TID PO 06/03/24 14:00 07/03/24 13:59 06/04/24 08:19 200 MG Ceftriaxone Sodium (ROCEphine 1G INJ) 1 gm Q24H IV 06/03/24 13:00 06/13/24 12:59 Dextrose (D50w) 50 ml AD PRN IV HYPOGLYCEMIA PROTOCOL 06/03/24 15:00 07/03/24 14:59 Enoxaparin Sodium (Lovenox) 30 mg DAILY SQ 06/04/24 09:00 07/04/24 08:59 06/04/24 08:20 30 MG Famotidine (Pepcid 20mg Tab) 20 mg BID PO 06/03/24 21:00 07/03/24 20:59 06/04/24 08:19 20 MG Glucagon (Glucagon 1mg Kit) 1 mg AD PRN IM HYPOGLYCEMIA PROTOCOL 06/03/24 15:00 07/03/24 14:59 Guaifenesin/ Dextromethorphan (RobiTUSSin DM 200/20MG 10ML) 10 ml Q4H PRN PO COUGH 06/03/24 13:00 07/03/24 12:59 Insulin Human Regular (humuLIN R 100 UNIT/ML 3ML) INSULIN SLIDING SCAL... ACHS SQ 06/03/24 16:30 07/03/24 16:29 06/03/24 16:33 2 UNIT Lactulose (Constulose 20gm/ 30ml Udcup) 20 gm BID PRN PO CONSTIPATION 06/03/24 13:00 07/03/24 12:59 Lisinopril (Prinivil 2.5mg) 2.5 mg DAILY PO 06/04/24 09:00 06/03/24 17:10 DC Morphine Sulfate (morPHINE 2MG SYG) 2 mg Q4H PRN IV MODERATE PAIN (4-6) 06/03/24 13:00 06/10/24 12:59 06/04/24 08:14 2 MG Nitroglycerin (Nitrostat) 0.4 mg PROTOCOL PRN SL CHEST PAIN 06/03/24 13:00 07/03/24 12:59 DIAGNOSTICS / RADIOLOGY: [place] [address] IMAGING REPORT Signed PATIENT: LOLY HARTLEY MR#: [id number] : 1960 SEX: M AGE: 63 LOCATION: [facility] ORDER 8 STATUS: REG ER REPORT#: [id number] SERVICE 6 REASON: cough ORDERING PHYSICIAN: SINGH LIZARRAGA MD PROCEDURE: CXR1VW - CHEST 1VW CHEST 1VW REASON: cough COMPARISON: 09/07/2022 FINDINGS: There is left lower lobe infiltrate consistent with pneumonia. There is mild patchy infiltrate in the right lung base. Heart size is normal. There is no vascular congestion or pleural effusion. Pacemaker is noted. IMPRESSION: 1. Left lobe infiltrate consistent with pneumonia, there is patchy infiltrate in the right base as well. DICTATED BY: LONDON MCWILLIAMS MD DATE: 06/03/24 1017 ELECTRONICALLY SIGNED BY: LONDON MCWILLIAMS MD DATE: 06/03/24 1020 ASSESSMENT: Possible Community Acquired Pneumonia, POA Possible aspiration pneumonia, POA Group A Streptococcal infection, POA Chronic obstructive pulmonary disease Metabolic encephalopathy Chronic smoker Hypertension Type 2 diabetes mellitus Hyperlipidemia Possible CHF, AICD placement in January 2018 PLAN: The patient will be admitted on the medical surgical floor Possible Community Acquired Pneumonia, POA Possible Aspiration Pneumonia, POA Group A Streptococcal infection, POA Chronic obstructive pulmonary disease, POA * Discontinue with Rocephin1 g IV Q 24 and start with Clindamycin 600 mg IV Q8 for anaerobic coverage for possible aspiration pneumonia tomorrow * Continue on azithromycin 500 mg IV Q 24 * Gram stain with respiratory culture was ordered. Follow up when the results are available. * Albuterol breathing treatment q.6 p.r.n. for shortness of breath * Robitussin DM q.4 p.r.n. for cough * Tessalon 100 mg t.i.d. p.r.n. for cough * Aspiration precautions Type 2 diabetes mellitus * Continue on insulin sliding scale for hyperglycemia * Hypoglycemia per protocol * Continue on heart healthy diet * Monitor intake and output * Lactulose 20 g b.i.d. p.r.n. for constipation * Lovenox 30 mg subQ daily for DVT prophylaxi * PT evaluation was ordered to assess shortness of breath while ambulation. Follow up with the results. * Case management was ordered to assist with finding primary care provider post discharge. * Home medications are yet to reconciled. The nurse was informed again today to reconcile home medications. * Urinalysis results were nonsignificant. Toxicology screening was positive for cocaine. * Morning labs: CBC, BMP We will monitor patient's symptoms vitals closely. Respiratory cultures with gram stain are pending. We will decide possible discharge tomorrow after Physical therapy evaluation and respiratory culture results are available. ATTESTATION BY PHYSICIAN I have seen and examined the patient. I reviewed the documentation, medical dec ision making, and treatment plan as noted by the resident provider above. I agree with the findings and plan of care. Josette Garcia MD, MANALI MD Jun 04, 2024 11:53
--- NOTE | 2024-06-04 14:13 | NUR ---
Discharge Planning: Pt. states he lives alone. Contact number is for his son Everette Sahu at . Pt. has no PCP. Provided list of current family doctors. Preferred pharmacy is [facility] in [place]. States he is independent with all ADL's. No home health, provider services, or DME. DCP is for home. Addendum: 06/04/24 at 1416 by CHAVA PRABHAKAR RN CM Amended: Links added.
[2024-06-04] MEDS ORDERED: PoTASSium chloRIDE 20MEQ/100ML 100 ML IV PRN (14:30)
[2024-06-04] MEDS ORDERED: PoTASSium chl 10% ELIXIR 20MEQ 20 MEQ/15 ML UDCUP PO PRN (14:30)
[2024-06-04] MEDS: PoTASSium chloRIDE 20MEQ ER 20 MEQ ERTAB PO PRN (14:42)
[2024-06-04] MEDS: LoSARTan 25 MG TABLET PO SCH (14:42)
[2024-06-04] MEDS ORDERED: ALBUTEROL 0.083% 2.5 MG/3 ML INH IH SCH (18:00)
--- NOTE | 2024-06-04 19:00 | NUR ---
AMA PATIENT LEFT AMA. WENT IN TO TALK TO PATIENT AND EXPLAINED THE IMPORTANCE OF STAYING AND EXPLAINED THE RISK OF LEAVING. PATIENT VERBALIZED UNDERSTANDING BUT STATED HE STILL WANTED TO GO HOME BECAUSE HE WANTED A STRONGER PAIN MED. CHARGE NURSE WAS NOTIFIED AND WENT OT GO SPEAK TO PATIENT BUT PATIENT STILL INSISTED ON LEAVING. IV WAS TAKEN OUT AND PATIENT SIGNED THE AMA FORM AND WAS LEFT IN CHART. PRIMARY WAS NOTIFIED.
[2024-06-04] MEDS ORDERED: atorVAStatin 40 MG TABLET PO SCH (21:00)
--- NOTE | 2024-06-04 22:32 | DS ---
Discharge Summary Hospital Course Summary: The patient is a 63-year-old male with a past medical history of type 2 diabetes mellitus, hypertension, hyperlipidemia, chronic obstructive pulmonary disease, chronic smoker, AICD placement in September 21, 2017, bipolar disorder presented to emergency department via ambulance with a chief complaints of cough, fever, and body aches. He was experiencing fever with chills, headaches, and productive sputum greenish in color since past 2 days. He also reported chest and shoulder tightness radiating to the back which is making him difficult to deep breathe. He also has been feeling dizzy and is not eating well. Per patient, he had some cocaine as cocaine numbs him up and eases that is discomfort. Chest x-ray showed left lobe infiltrate consistent with pneumonia and patchy infiltrate in the right base as well. Additionally, he was tested positive for group a Streptococcus.He was in the state of somnolence in ED, said that he is tired and has a chest pressure. He also mumbled that he has been having some blood in the urine. He has been noncompliant with his office visits lately. The patient lives alone in the trailer and has a stumbling gait since past 1-2 weeks. Very limited history was able to collect from the patient. The patient was admitted on the medical surgical floor on 06/03/2024 for the management of streptococcal pneumonia. The patient was started for treatment of pneumonia with IV antibiotics and nebulizer treatment to help with the breathing support. The following day, the patient signed out against medical advise from [facility] [place]. He had been on Morphine and Tylenol for pain. On 06/04/24 evening, the patient informed the nurse he wants to go home and take the stronger pain medication which he does not remember the name. As per primary nurse, the patient does not wish to continue any treatment at this time and refusing to stay and complete evaluation and disposition. The patient is fully aware of all risks and benefits of leaving against medical advise. Possible benefits include correction of the current medical condition and improvement of symptoms. However, the patient was advised that possible risks of leaving against medical advise includes worsening of the current medical condition, including . The patient/care-machinist general verbalized understanding of the risks and benefits discussed. Despite this, the patient left against medical advise. Procedure(s): [facility] [address] [address] IMAGING REPORT Signed PATIENT: LOLY HARTLEY MR#: [id number] : 1960 SEX: M AGE: 63 LOCATION: [facility] ORDER 8 STATUS: REG ER REPORT#: [id number] SERVICE REASON: cough ORDERING PHYSICIAN: SINGH LIZARRAGA MD PROCEDURE: CXR1VW - CHEST 1VW CHEST 1VW REASON: cough COMPARISON: 09/07/2022 FINDINGS: There is left lower lobe infiltrate consistent with pneumonia. There is mild patchy infiltrate in the right lung base. Heart size is normal. There is no vascular congestion or pleural effusion. Pacemaker is noted. IMPRESSION: 1. Left lobe infiltrate consistent with pneumonia, there is patchy infiltrate in the right base as well. DICTATED BY: LONDON MCWILLIAMS MD DATE: 06/03/24 1017 ELECTRONICALLY SIGNED BY: LONDON MCWILLIAMS MD DATE: 06/03/24 1020 RUN DATE: 06/04/24 [facility] [address] 1 RUN TIME: [id number] [place] [address] Department of Laboratories CLIA # [id number] Mysql Database Developer: Stormy Buenrostro DO Specimen Report PATIENT: LOLY HARTLEY ACCT: [id number] LOC: [facility] U: [id number] AGE/SX: 63/M ROOM: [facility] RE06/03/[address]: NILSA RAMIRES MD : 1960 BED: 1 DIS: STATUS: ADM IN TLOC: SPEC: [id number] NIKOLAS: 06/03/24 STATUS: RES REQ: [id number] RECD: 06/03/[address]: RODGER WOLFE MD SOURCE: SPUTUM ENTR: 06/03/[address]: NILSA RAMIRES MD SPDESC: EXPECTO SELF,REFERRAL ORDERED: RESP CULTURE Procedure Result Marlen Date-Time ------ ------ GRAM STAIN Final 06/04/24-1409 [facility] GRAM STAIN RESULT: MODERATELY FAIR SPECIMEN [ >10SEC's/LPF AND >25 PMN's/LPF ] 1+ GRAM POSITIVE RODS 1+ GRAM POSITIVE COCCI RESPIRATORY CULTURE PENDING @ [facility] Test Performed at: [facility] [address], [place], [place] Medical Cheesemaker: Eric Burrows D.O. Assessment/Plan: ASSESSMENT: Possible Community Acquired Pneumonia, POA Possible aspiration pneumonia, POA Group A Streptococcal infection, POA Chronic obstructive pulmonary disease Metabolic encephalopathy Chronic smoker Hypertension Type 2 diabetes mellitus Hyperlipidemia Possible CHF, AICD placement in January 2018 Admission date: 06/03/2024 The patient left AMA on 06/04/2024 Procedures: None Imaging: Please find attached Discharge instructions: The patient signed discharge against medical advise form and left. He was advised to go to nearest emergency department or call 911 if experience any lifethreatening symptoms. Discharge Instructions: ATTESTATION BY PHYSICIAN I have seen and examined the patient. I reviewed the documentation, medical decision making, and treatment plan as noted by the resident provider above. I agree with the findings and plan of care. Nilsa Ramires MD Home Medications: Active Scripts Ibuprofen (Ibuprofen 800 mg Tab) 800 Mg Tab, 800 MG PO Q8H PRN for PAIN, #30 TAB 0 Refills Prov:SINGH LIZARRAGA MD 09/07/22 Omeprazole Magnesium (Prilosec Otc) 20 Mg Tablet.dr, 20 MG PO DAILY, #30 TAB Prov:DEMETRA LOYA MD 12/11/21 Ondansetron (Ondansetron Odt) 4 Mg Tab.rapdis, 8 MG PO Q8H PRN for NAUSEA/VOMITING, #20 TAB Prov:DEMETRA LOYA MD 12/11/21 Time spent arranging discharge: 31-60 minutes ATTESTATION BY PHYSICIAN I have seen and examined the patient. I reviewed the documentation, medical decision making, and treatment plan as noted by the resident provider above. I agree with the findings and plan of care. Nilsa Ramires MD, MANALI MD Jun 04, 2024 22:31
[2024-06-05] MEDS ORDERED: CLINDAMYCIN IVPB 600MG/50ML 50 ML IV SCH (06:00)
== END 2024-06-04 19:30 | disposition left against medical advice (07) | DRG 177 ==
LOC: EDH 08:36 → EDHIP 12:37 → 3AH 19:48
PROVIDERS: ADMIT Hospitalist; ATTEND Hospitalist
DX: J69.0 Pneumonitis due to inhalation of food and vomit (principal); G93.41 Metabolic encephalopathy; J44.0 Chronic obstructive pulmonary disease with (acute) lower respiratory infection; J15.4 Pneumonia due to other streptococci; F31.9 Bipolar disorder, unspecified; F17.210 Nicotine dependence, cigarettes, uncomplicated; E11.65 Type 2 diabetes mellitus with hyperglycemia; E78.00 Pure hypercholesterolemia, unspecified; Z53.29 Procedure and treatment not carried out because of patient's decision for other reasons; Z20.822 Contact with and (suspected) exposure to COVID-19; I11.0 Hypertensive heart disease with heart failure; I50.9 Heart failure, unspecified; Z83.3 Family history of diabetes mellitus; Z91.199 Patient's noncompliance with other medical treatment and regimen due to unspecified reason; Z95.810 Presence of automatic (implantable) cardiac defibrillator; Z82.49 Family history of ischemic heart disease and other diseases of the circulatory system; Z79.899 Other long term (current) drug therapy
CPT/HCPCS: 36415; 71045; 80048; 80076; 80305; 81001; 82948; 83036; 83880; 84484; 85025; 87071; 87086; 87186; 87205; 87635; 87804; 87880; 93005; 94640; 94664; G0378; J0456; J0696; J1650; J1815; J2270

== ENCOUNTER 2025-01-30 17:46 | Emergency (ER) | payer BC, OTHER ==
[~2025-01-30] VITALS: Ht 182.9 cm; Wt 95.3 kg
[2025-01-30 18:26] LABS: IMMATURE GRANULOCYTE ABSOLUTE 0.03 K/uL (0-1); NUCLEATED RED BLOOD CELLS 0.0 % (0.0-0.19); PLATELET COUNT (AUTO) 168 K/uL (130-400); RED BLOOD CELL COUNT(AUTO) 4.69 MIL/uL (4.50-6.20); RED CELL DISTRIBUTION WIDTH 15.2 % (11.0-15.5); WHITE BLOOD COUNT (AUTO) 6.7 K/uL (4.8-10.8)
--- NOTE | 2025-01-30 18:30 | ERN ---
General Chief Complaint: Dizzy/Light Headed Stated Complaint: DIZZINESS AND HYPOTENSION Time Seen by MD: 17:49 Time Seen by Midlevel: 17:49 Source: patient History of Present Illness Initial Comments The patient is a 64-year-old male presenting to the emergency department via EMS after he had an episode of near-syncope. The patient states he was working o [employer] all day when suddenly he felt like he was going to pass out. EMS was called on scene and he was found to be hypotensive. He was given1 L of IV fluids in his blood pressure improved. On arrival with the patient states he reports feeling significantly improved and would like to go home. Denies any other complaints. Allergies: Coded Allergies: varenicline (Unverified Allergy, Unknown, 09/07/22) Home Meds Active Scripts Ibuprofen (Ibuprofen 800 mg Tab) 800 Mg Tab, 800 MG PO Q8H PRN for PAIN, #30 TAB 0 Refills Prov:SINGH LIZARRAGA MD 09/07/22 Omeprazole Magnesium (Prilosec Otc) 20 Mg Tablet.dr, 20 MG PO DAILY, #30 TAB Prov:DEMETRA LOYA MD 12/11/21 Ondansetron (Ondansetron Odt) 4 Mg Tab.rapdis, 8 MG PO Q8H PRN for NAUSEA/VOMITING, #20 TAB Prov:DEMETRA LOYA MD 12/11/21 Past Medical History Past Medical History: Diabetes-Type II, High Cholesterol, Hypertension Past Surgical History: Pacer/AICD Family History Family History: DM, HTN Social History Social History: Smokers ROS Dictation CONSTITUTIONAL: Negative except for HPI HEAD/FACE: Negative except for HPI EENT: Negative except for HPI RESPIRATORY: Negative except for HPI GASTROINTESTINAL/ABDOMINAL: Negative except for HPI GENITOURINARY: Negative except for HPI MUSCULOSKELETAL: Negative except for HPI INTEGUMENTARY: Negative except for HPI NEUROLOGICAL/PSYCH: Negative except for HPI HEMATOLOGIC/LYMPHATIC: Negative except for HPI All Systems Negative, Except as noted above. 13 point review of systems assessed and all negative except for above. Physical Exam Physical Exam Dictation Vital Signs reviewed General Appearance: Alert, oriented x 3, no acute distress, well developed, nourished. Head and Face: non-traumatic. Eyes: PERRL, pink conjunctivas, eyelid no trauma, anterior chamber with arcus senilis. Ears: Pinnas intact and no signs of trauma or erythema ear canals clear and no discharge TM no erythema Nose: No discharge, no bleeding. Oropharynx: Mouth normal, tongue pink, pharynx clear,no erythema, tonsils no exudates, no abscesses noted, mucous membrane moist Neck: Supple, non-tender, no thyromegaly, no masses, no JVD, no bruits Breast:Deferred Chest:No tenderness, no crepitus, no paradoxical movement, no retractions Lungs:Clear, well-ventilated, symmetric, no rales, no wheezing, no rhonchi, no stridor, good breath sounds bilaterally Heart: Regular rate, regular rhythm, no murmur, no gallops Vascular: no peripheral edema, Abdomen: Soft, positive bowel sounds, nondistended, no guarding, nontender, no rebound, no masses no hepatomegaly, no splenomegaly, no Tavarez's sign, no hernias. Rectal: Deferred Genital: Deferred Neurological: Normal speech, motor function intact, sensory function intact Musculoskeletal: Neck nontender, full range of motion, back nontender, full range of motion, Extremities: nontender, full range of motion Skin: Color pink, dry, no turgor, no rash, no lacerations, no abrasions, no contusions. Lymphatic: Deferred Results Laboratory and Microbiology Lab and Micro Result Laboratory Tests Test 01/30/25 18:18 01/30/25 19:18 White Blood Count 6.7 K/uL (4.8-10.8) Red Blood Count 4.69 MIL/uL (4.50-6.20) Hemoglobin 13.5 g/dL (14.0-18.0) L Hematocrit 42.4 % (42-54) Mean Corpuscular Volume 90.4 fL (79-99) Mean Corpuscular Hemoglobin 28.8 pg (27.0-33.0) Mean Corpuscular Hemoglobin Concent 31.8 g/dL (32.0-36.0) L Red Cell Distribution Width 15.2 % (11.0-15.5) Platelet Count 168 K/uL (130-400) Mean Platelet Volume 9.4 fL (7.5-10.5) Immature Granulocyte % (Auto) 0.4 % (0-1) Neutrophils (%) (Auto) 60.9 % (40.0-77.0) Lymphocytes (%) (Auto) 24.1 % (21.0-51.0) Monocytes (%) (Auto) 9.8 % (3.0-13.0) Eosinophils (%) (Auto) 3.6 % (0.0-8.0) Basophils (%) (Auto) 1.2 % (0.0-5.0) Neutrophils # (Auto) 4.1 K/uL (1.8-7.7) Lymphocytes # (Auto) 1.6 K/uL (1.0-4.8) Monocytes # (Auto) 0.7 K/uL (0.1-1.0) Eosinophils # (Auto) 0.24 K/uL (0.00-0.70) Basophils # (Auto) 0.08 K/uL (0.00-0.20) Absolute Immature Granulocyte (auto 0.03 K/uL (0-1) Nucleated Red Blood Cells 0.0 % (0.0-0.19) Sodium Level 143 mmol/L (136-145) Potassium Level 4.1 mmol/L (3.5-5.1) Chloride Level 106 mmol/L (101-111) Carbon Dioxide Level 34 mmol/L (21-32) H Blood Urea Nitrogen 12 mg/dL (7-18) Creatinine 1.1 mg/dL (0.5-1.3) Glomerular Filtration Rate Calc 75 mL/min (>90) Random Glucose 103 mg/dL (70-105) Lactic Acid Level 1.1 mmol/L (0.8-2.5) Total Calcium 8.2 mg/dL (8.5-10.1) L Magnesium Level 1.80 mg/dL (1.80-2.40) Total Creatine Kinase 139 U/L (21-232) # Troponin I High Sensitivity 6 ng/L (4-75) B-Type Natriuretic Peptide 29 pg/mL (0-100) Urine Color LIGHT-YELLOW (YELLOW) Urine Appearance CLEAR (CLEAR) Urine pH 5.5 (5.0-8.0) Urine Specific [place] 1.013 (1.001-1.031) Urine Protein NEGATIVE mg/dL (NEGATIVE) Urine Glucose (UA) NEGATIVE mg/dL (NEGATIVE) Urine Ketones NEGATIVE mg/dL (NEGATIVE) Urine Occult Blood NEGATIVE (NEGATIVE) Urine Nitrate NEGATIVE (NEGATIVE) Urine Bilirubin NEGATIVE mg/dL (NEGATIVE) Urine Urobilinogen 0.2 mg/dL (0.2-1.0) Urine Leukocyte Esterase NEGATIVE [place]/uL Labs Reviewed?: Yes MDM MDM: Differential diagnosis: Acute coronary syndrome, dehydration, electrolyte abnormality, syncope There are no social concerns with this patient. Prescription drug management Prescriptions will include: None Medical management and examination interpretation discussions were had by me with other qualified healthcare professionals as indicated for the patient's care. ED Course Orders Procedure Category Date Status Time Cbc With Differential LAB 01/30/25 Complete 18:03 Basic Metabolic Panel LAB 01/30/25 Complete 18:03 B-Type Natriuretic LAB 01/30/25 Complete Peptide 18:03 Creatine Kinase, Total LAB 01/30/25 Complete 18:03 Magnesium LAB 01/30/25 Complete 18:03 Troponin I High LAB 01/30/25 Complete Sensitivity 18:03 Urinalysis Profile LAB 01/30/25 Complete 18:03 Chest 1vw RAD 01/30/25 Resulted 18:03 Lactic Acid LAB 01/30/25 Complete 18:03 Ct Head/Brain W/O CT 01/30/25 Resulted Contrast 18:19 Vital Signs Date Time Temp Pulse Resp B/P (MAP) Pulse Ox O2 Delivery O2 Flow Rate FiO2 01/30/25 19:35 98.6 64 17 116/80 97 Room Air* 0 21 01/30/25 18:00 98.2 71 20 120/75 98 Room Air* 0 21 01/30/25 17:47 98.2 71 20 120/75 98 DX & DISP Disposition: Discharge Departure Impression: Primary Impression: Near syncope Condition: Stable Additional Instructions: Your blood work today is unremarkable. Your cardiac enzymes are negative. Your CT scan of the head is normal. Your chest x-ray is normal. You were given IV fluids in the emergency department. Please keep appointment for your pacemaker battery replacement as discussed. Follow up with your primary care doctor in 2-3 days for repeat evaluation. Referrals: SELF,REFERRAL (PCP) Time of Disposition: 20:17 I have reviewed the case, and I agree with, Diagnosis and Plan I performed the substantive portion of the visit. I have reviewed and personally made and approve the management plan that is documented in the note by myself or the ISUARO. I acknowledge for responsibility for the patient's management plan. MANUEL MILLS Jan 30, 2025 18:29
[2025-01-30 18:38] LABS: CREATININE 1.1 mg/dL (0.5-1.3); GLOMERULAR FILTR. RATE CALC 75.0 mL/min (>90); GLUCOSE,RANDOM 103.0 mg/dL (70-105); SODIUM SERUM 143.0 mmol/L (136-145); UREA NITROGEN, BLOOD 12.0 mg/dL (7-18)
[2025-01-30 18:48] LABS: CREATINE KINASE, TOTAL 139.0 U/L (21-232)
--- NOTE | 2025-01-30 19:15 | HMCIMG ---
EXAM: CR Chest, 1 View. CLINICAL HISTORY: sob COMPARISON: None provided. FINDINGS: LUNGS: The lungs show no infiltrate or other acute finding. PLEURAL SPACES: No pleural effusion or pneumothorax. MEDIASTINUM: The cardiomediastinal silhouette is within normal limits. Pacemaker evident BONES: No acute osseous abnormality. IMPRESSION: No acute cardiopulmonary pathology is evident. /[place]
[2025-01-30 19:25] LABS: APPEARANCE,URINE CLEAR (CLEAR); GLUCOSE, URINE (UA) NEGATIVE (NEGATIVE); LEUKOCYTE ESTERASE ,URINE NEGATIVE Leu/uL (NEGATIVE); NITRATE,URINE NEGATIVE (NEGATIVE); OCCULT BLOOD,URINE NEGATIVE (NEGATIVE)
[2025-01-30 19:26] LABS: ADD UA MICROSCOPIC NO
[2025-01-30 19:35] VITALS: BP 116/80; PULSE 64; RESP 17; TEMP 98.6; O2SAT 97
--- NOTE | 2025-01-30 19:54 | HMCIMG ---
EXAM: CT Head Without IV contrast. CLINICAL HISTORY: dizziness, near syncope TECHNIQUE: Axial computed tomography images of the head/brain without intravenous contrast. COMPARISON: None provided. FINDINGS: BRAIN: No evidence of acute hemorrhage. No mass lesion. No CT evidence for acute territorial infarct. No midline shift or extra-axial collections. VENTRICLES: No hydrocephalus. ORBITS: The orbits are unremarkable. SINUSES AND MASTOIDS: The paranasal sinuses and mastoid air cells are clear. BONES: No fracture. SOFT TISSUES: Unremarkable. IMPRESSION: 1. No acute intracranial findings. /[place]
== END 2025-01-30 20:25 | disposition home or self-care (01) ==
LOC: EDH 17:46
DX: R55 Syncope and collapse (principal); E11.9 Type 2 diabetes mellitus without complications; E78.00 Pure hypercholesterolemia, unspecified; F17.200 Nicotine dependence, unspecified, uncomplicated; I10 Essential (primary) hypertension; Z79.899 Other long term (current) drug therapy; Z95.810 Presence of automatic (implantable) cardiac defibrillator
CPT/HCPCS: 36415; 70450; 71045; 80048; 81003; 82550; 83605; 83735; 83880; 84484; 85025; 99284

== ENCOUNTER 2025-05-27 12:15 | Observation (INO) | payer OTHER ==
[~2025-05-27] VITALS: Ht 182.9 cm; Wt 85.4 kg
[2025-05-27 13:59] LABS: IMMATURE GRANULOCYTE ABSOLUTE 0.01 K/uL (0-1); NUCLEATED RED BLOOD CELLS 0.0 % (0.0-0.19); PLATELET COUNT (AUTO) 220 K/uL (130-400); RED BLOOD CELL COUNT(AUTO) 5.06 MIL/uL (4.50-6.20); RED CELL DISTRIBUTION WIDTH 15.7 % (11.0-15.5); WHITE BLOOD COUNT (AUTO) 5.2 K/uL (4.8-10.8)
--- NOTE | 2025-05-27 14:17 | ERN ---
ED Note History of Present Illness Stated Complaint: MULTIPLE COMPLAINTS Chief Complaint: Multiple Complaints Time Seen by MD: 12:35 Time Seen by Midlevel: 13:00 Dictation: 64-year-old male coming in EKGs he states he feels like his pacemaker battery razor running out. Patient states he has also has left lower leg swelling and left lower back pain for two weeks along with dizziness lightheadedness and near-syncope episodes. Patient states he had his pacemaker placed in 2018 in . Denies having any chest pain, chest discomfort, shortness a breath, fevers, nausea or vomiting. Denies any trauma Allergies: Coded Allergies: varenicline (Unverified Allergy, Unknown, 09/07/22) Home Meds Active Scripts Ibuprofen (Ibuprofen 800 mg Tab) 800 Mg Tab, 800 MG PO Q8H PRN for PAIN, #30 TAB 0 Refills Prov:SINGH LIZARRAGA MD 09/07/22 Omeprazole Magnesium (Prilosec Otc) 20 Mg Tablet.dr, 20 MG PO DAILY, #30 TAB Prov:DEMETRA LOYA MD 12/11/21 Ondansetron (Ondansetron Odt) 4 Mg Tab.rapdis, 8 MG PO Q8H PRN for NAUSEA/VOMITING, #20 TAB Prov:DEMETRA LOYA MD 12/11/21 Past Medical History Past Medical History: Hypertension Surgical History: Pacer/AICD Family History: DM, HTN Social History: Smokers Review of System Dictation Constitutional: Negative for fever,chills, and weight loss Eyes: Negative for injury, pain,redness, and discharge ENT: Negative for injury,pain or swelling Cardiovascular: Negative for chest pain, palpitations, and edema Respiratory: Negative for shortness of breath, cough, and wheezing, Abdomen/GI: Negative for abdominal pain, nausea, vomiting, diarrhea, and constipation Back: Negative for injury and pain : Negative for injury, bleeding and discharge MS/Extremity: Complaining of left lower leg swelling Skin: Negative for rash, and discoloration Neuro: Negative for headache, weakness, numbness, tingling, and seizure Psych: Negative for suicide ideation, homicidal ideation, and hallucinations Review of Systems: was completed Initial Vital Sign VS Vital Signs Date Time Temp Pulse Resp B/P (MAP) Pulse Ox O2 Delivery O2 Flow Rate FiO2 05/27/25 12:16 97.5 78 16 125/86 97 Room Air 0 05/27/25 18:30 21 Physical Exam Dictation General: awake, alert, NAD Head/Face: Normocephalic, atraumatic Eyes: PERRL, EOMI, vision at baseline ENT: oral cavity clear, TMs clear, no signs of infection Neck: Trachea midline, supple, no nuchal rigidity Cardiovascular: RRR, normal S1/S2, No MRGs, no JVD, plus two left lower leg pitting edema Respiratory: CTAB, no respiratory distress, No rales or wheezes Abdomen: Soft, non-tender, non-distended, normal bowel sounds, no guarding or rebound. Skin: Warm, dry, normal turgor, no rash MS/Extremity: Pulses equal, no cyanosis, neurovascular intact, FROM, no L-spine midline tenderness Neuro: COAx4, GCS 15, strength 5/5, CN 2-12 intact, normal cerebellar exam, normal gait, Psych: Normal behavior, mood, and affect normal Results (Laboratory/Radiology) Laboratory/Radiology Laboratory Tests Test 05/27/25 13:51 White Blood Count 5.2 K/uL (4.8-10.8) Red Blood Count 5.06 MIL/uL (4.50-6.20) Hemoglobin 14.8 g/dL (14.0-18.0) Hematocrit 46.0 % (42-54) Mean Corpuscular Volume 90.9 fL (79-99) Mean Corpuscular Hemoglobin 29.2 pg (27.0-33.0) Mean Corpuscular Hemoglobin Concent 32.2 g/dL (32.0-36.0) Red Cell Distribution Width 15.7 % (11.0-15.5) H Platelet Count 220 K/uL (130-400) Mean Platelet Volume 9.2 fL (7.5-10.5) Immature Granulocyte % (Auto) 0.2 % (0-1) Neutrophils (%) (Auto) 55.7 % (40.0-77.0) Lymphocytes (%) (Auto) 26.6 % (21.0-51.0) Monocytes (%) (Auto) 12.0 % (3.0-13.0) Eosinophils (%) (Auto) 4.4 % (0.0-8.0) Basophils (%) (Auto) 1.1 % (0.0-5.0) Neutrophils # (Auto) 2.9 K/uL (1.8-7.7) Lymphocytes # (Auto) 1.4 K/uL (1.0-4.8) Monocytes # (Auto) 0.6 K/uL (0.1-1.0) Eosinophils # (Auto) 0.23 K/uL (0.00-0.70) Basophils # (Auto) 0.06 K/uL (0.00-0.20) Absolute Immature Granulocyte (auto 0.01 K/uL (0-1) Nucleated Red Blood Cells 0.0 % (0.0-0.19) Sodium Level 144 mmol/L (136-145) Potassium Level 4.0 mmol/L (3.5-5.1) Chloride Level 109 mmol/L (101-111) Carbon Dioxide Level 30 mmol/L (21-32) Blood Urea Nitrogen 13 mg/dL (7-18) Creatinine 1.0 mg/dL (0.5-1.3) Glomerular Filtration Rate Calc 85 mL/min (>90) Random Glucose 96 mg/dL (70-105) Total Calcium 8.7 mg/dL (8.5-10.1) Troponin I High Sensitivity 6 ng/L (4-75) B-Type Natriuretic Peptide 65 pg/mL (0-100) Labs Reviewed?: Yes EKG Comment: EKGs done at 2:23 p.m.. Sinus rhythm at a rate of 68. No STEMI interpreted by ER MD. X-RAY Comment: [place] [id number] [id number] IMAGING REPORT Signed PATIENT: LOLY HARTLEY MR#: [id number] : 1960 SEX: M AGE: 64 LOCATION: [facility] ORDER 1346 STATUS: REG ER REPORT#: [id number] SERVICE 1345 REASON: SOB ORDERING PHYSICIAN: LESVIA ROBERTS CNP PROCEDURE: CXR1VW - CHEST 1VW STUDY CR chest, 2 views CLINICAL HISTORY Shortness of breath TECHNIQUE Posteroanterior and lateral radiographs of the chest were obtained. COMPARISON CR chest 1 view dated 8/29/25 18:32 EDT. FINDINGS Lungs The lungs are clear without focal consolidation, pulmonary edema, or acute airspace disease. No suspicious pulmonary nodule is identified. Pleural spaces No pleural effusion or pneumothorax is seen. Mediastinum and heart The cardiomediastinal silhouette is within normal limits. No mediastinal widening is evident. Devices An internal cardiac pacemaker is present in the right anterior chest wall with leads projecting to the expected regions of the right atrium and/or right ventricle. No lead discontinuity, gross malposition, or other hardware-related complication is evident on these views. Bones and soft tissues No aggressive or acute osseous abnormality is identified. Visualized soft tissues are unremarkable. IMPRESSION * Internal cardiac pacemaker in the right anterior chest wall without radiographic evidence of hardware-related complication. * No acute cardiopulmonary abnormality identified. /[place] DICTATED BY: SYLWIA HERNÁNDEZ Jr., MD DATE: 05/27/251538 ELECTRONICALLY SIGNED BY: SYLWIA HERNÁNDEZ Jr., MD DATE: 05/27/251538 Ultrasound Comment: [address] [address] IMAGING REPORT Signed PATIENT: LOLY HARTLEY MR#: [id number] : 1960 SEX: M AGE: 64 LOCATION: [facility] ORDER 1346 STATUS: [facility] [place] REPORT#: [id number] SERVICE 1345 REASON: SWELLING TO LEFT LEG ORDERING PHYSICIAN: LESVIA ROBERTS CNP PROCEDURE: VENOUS UNI - US VENOUS DOPPLER UNILATERAL EXAM: US for Deep Venous Thrombosis, left Lower Extremity. CLINICAL HISTORY: Leg Pain and Swelling TECHNIQUE: Real-time ultrasound scan of the veins of the left lower extremity with color Doppler flow, spectral waveform analysis and compression. COMPARISON: None provided. FINDINGS: DEEP VEINS: The common femoral, superficial femoral, and popliteal veins are echolucent and compressible. There is normal color Doppler flow throughout. The visualized calf veins appear patent. SOFT TISSUES: No popliteal fossa cyst or other abnormalities. IMPRESSION: 1. No evidence of deep venous thrombosis in the left lower extremity. /[place] DICTATED BY: SYLWIA HERNÁNDEZ Jr., MD DATE: 05/27/251711 ELECTRONICALLY SIGNED BY: SYWLIA HERNÁNDEZ Jr., MD DATE: 05/27/251711 ED Course ED Course Orders Procedure Category Date Status Time Cbc With Differential LAB 05/27/25 Complete 13:45 Basic Metabolic Panel LAB 05/27/25 Complete 13:45 B-Type Natriuretic LAB 05/27/25 Complete Peptide 13:45 12 Lead Ekg Tracing- EKG 05/27/25 Logged Technical 13:45 Troponin I High LAB 05/27/25 Complete Sensitivity 13:45 Chest 1vw RAD 05/27/25 Resulted 13:45 Us Venous Doppler US 05/27/25 Resulted Unilateral 13:45 Urinalysis Profile LAB 05/27/25 Logged 13:45 Vital Signs Date Time Temp Pulse Resp B/P (MAP) Pulse Ox O2 Delivery O2 Flow Rate FiO2 05/27/25 18:30 85 20 114/80 99 Room Air* 0 21 05/27/25 12:16 97.5 78 16 125/86 97 Room Air 0 HEART Score Response (Comments) Value History: Moderate suspicion (+1) 1 EKG: Normal 0 Age: 45-65yrs (+1) 1 Risk Factors: 3+ risk factors (+2) 2 Initial Troponin: Normal limit (0) 0 Total 4 Medical Decision Making MDM MDM: 64-year-old male coming in EKGs he states he feels like his pacemaker battery razor running out. Patient states he has also has left lower leg swelling and left lower back pain for two weeks along with dizziness lightheadedness and near-syncope episodes. Patient states he had his pacemaker placed in 2018 in . Denies having any chest pain, chest discomfort, shortness a breath, fevers, nausea or vomiting. Denies any trauma. Blood work unremarkable. Troponin negative. EKGs did not show any ST elevation or dysrhythmias. Ultrasound is negative for a DVT in the left leg. Chest x-ray shows no acute finding. Patient states she he is still having same symptoms as well has been he was seen earlier today. Patient will be admitted for observation rule out ACS. Pacemaker was able to be interrogated, and was found to be normal with no events. Differential diagnosis: Pacemaker failure, ACS, dehydration, blood overload, DVT Rationale: Tests considered and ordered secondary to shared decision making include: labs, ECG and radiology Previous outside records reviewed: Old ER visits. Risk of complication and/or morbidity or mortality of patient management: None Medications-Per medication reconciliation Need for hospitalization: Patient does meet criteria for hospitalization. Need for emergency major/minor surgery: No There are no social concerns with this patient. Prescription drug management Prescriptions will include symptomatic care Patient's prior external medical records from other ER visits were reviewed by me as indicated. Prior testing and results from previous visits were reviewed. Prior tests were taken into account with medical decision making and resource utilization, independent historian/historians were used to obtain complete medical history. I independently interpreted the test that were performed, results were reviewed by me and considered findings on radiology if ordered. Medical management and examination interpretation discussions were had by me with other qualified healthcare professionals as indicated for the patient's care. DX & DISP Disposition: Inpatient Departure Impression: Primary Impression: Near syncope Additional Impression: Leg swelling Condition: Stable Referrals: SELF,REFERRAL (PCP) Time of Disposition: 18:59 I have reviewed the case, and I agree with, Diagnosis and Plan LESVIA ROBERTS CNP May 27, 2025 14:17
[2025-05-27 14:25] LABS: CREATININE 1.0 mg/dL (0.5-1.3); GLOMERULAR FILTR. RATE CALC 85.0 mL/min (>90); GLUCOSE,RANDOM 96.0 mg/dL (70-105); SODIUM SERUM 144.0 mmol/L (136-145); UREA NITROGEN, BLOOD 13.0 mg/dL (7-18)
--- NOTE | 2025-05-27 14:40 | HMCIMG ---
STUDY CR chest, 2 views CLINICAL HISTORY Shortness of breath TECHNIQUE Posteroanterior and lateral radiographs of the chest were obtained. COMPARISON CR chest 1 view dated 01/30/25 18:32 EDT. FINDINGS Lungs The lungs are clear without focal consolidation, pulmonary edema, or acute airspace disease. No suspicious pulmonary nodule is identified. Pleural spaces No pleural effusion or pneumothorax is seen. Mediastinum and heart The cardiomediastinal silhouette is within normal limits. No mediastinal widening is evident. Devices An internal cardiac pacemaker is present in the right anterior chest wall with leads projecting to the expected regions of the right atrium and/or right ventricle. No lead discontinuity, gross malposition, or other hardware-related complication is evident on these views. Bones and soft tissues No aggressive or acute osseous abnormality is identified. Visualized soft tissues are unremarkable. IMPRESSION * Internal cardiac pacemaker in the right anterior chest wall without radiographic evidence of hardware-related complication. * No acute cardiopulmonary abnormality identified. /[place]
--- NOTE | 2025-05-27 16:14 | HMCIMG ---
EXAM: US for Deep Venous Thrombosis, left Lower Extremity. CLINICAL HISTORY: Leg Pain and Swelling TECHNIQUE: Real-time ultrasound scan of the veins of the left lower extremity with color Doppler flow, spectral waveform analysis and compression. COMPARISON: None provided. FINDINGS: DEEP VEINS: The common femoral, superficial femoral, and popliteal veins are echolucent and compressible. There is normal color Doppler flow throughout. The visualized calf veins appear patent. SOFT TISSUES: No popliteal fossa cyst or other abnormalities. IMPRESSION: 1. No evidence of deep venous thrombosis in the left lower extremity. /[place]
--- NOTE | 2025-05-27 18:45 | NUR ---
PT REFUSING IV AND STATES HE DOES NOT NEED IT. PT INFORMED OF MULTIPLE REASONS AND USE FOR IV AND HE CONTINUES TO REFUSE. HOSPITALIST ARMEN ONEIL NP MADE AWARE.
--- NOTE | 2025-05-27 19:35 | HP ---
[facility] HISTORY AND PHYSICAL Date of Service: May 27, 2025 Time of Service: 18:59 PCP: Self Referral HISTORY OF PRESENT ILLNESS: This is a 64 year old male with past medical history of diabetes, hypertension, hyperlipidemia, Chronic obstructive pulmonary disease, polysubstance use disorder, bipolar disorder and PPM/AICD placement who presents to the ED for multiple complaints such as bilateral lower extremity edema x1 month ,generalized weakness,and pacemaker battery low ,associated with dizziness and lightheadedness .Patient reports he feels he needs his pacemaker checked and on further evaluation patient reports the reason he wants to come to the hospital because his both lower extremities were swollen and every time he [facility] nothing is wrong with it so he waited until it becomes really worse so the doctor can see it.Patient states his left lower extremity is much more sw [place]llen getting more worse this past 6 days .Patient denies trauma,injury or any insect bite. Patient refuse to have IV insertion for emergency access,he said he will only have it if actually needed it.Patient reports the only medication he is taking is his for his Blood pressure but forgot the name of the meds.Patient reports he is from [place] but has no PCP and claims director,he said he had one in [facility].Patient also reports he smoke 1 pack of cigarette per day and use marijuana and cocaine and last use was 3-4 days ago, Seen and examined patient in the Ed awake,alert and coherent.Patient denies fever,chills,chest pain,palpitation,syncope,dizziness,cough and shortness of breath. Latest vital signs temperature 97.5, heart rate 85, blood pressure 11 4/80 saturation 99% on room air. Labs: CBC unremarkable and chemistries normal.CXR result revealed internal cardiac pacemaker in the right anterior chest wall without radiographic evidence of hardware related complication. No acute cardiopulmonary abnormality. PPM/AICD device was interrogated in the ER and was normal. Venous Doppler to left lower extremity result revealed no e vidence of DVT.ER MD called and recommended to admit the patient. REVIEW OF SYSTEMS CONSTITUTIONAL: Denies fevers, chills, or night sweats. No unintentional weight loss reported. NEUROLOGICAL: Denies headache, amaurosis fugax, motor weakness, sensory deficit, vertigo/spinning sensation, gait abnormalities, or tremors. ENT: No hearing loss, otalgia, otorrhea, rhinitis, rhinorrhea, hoarseness, or sore throat. CARDIOVASCULAR: Denies any exertional angina, dyspnea on exertion, orthopnea, paroxysmal nocturnal dyspnea, palpitations, life-threatening arrhythmias, claudication. PULMONARY: Denies any shortness of breath, cough, phlegm/sputum, hemoptysis, pleuritic chest pain. SLEEP: Denies morning headaches, daytime somnolence or napping. Denies difficulty falling asleep, staying asleep, waking from sleep. Denies knowledge of snoring. GASTROINTESTINAL: Denies any type of dysphagia to either liquids or solids. Denies nausea, vomiting, pyrosis, early satiety, abdominal pain, diarrhea, constipation, or changes in stool consistency or caliber. Denies coffee-ground emesis, hematemesis, hematochezia, or melanotic stools. GENITOURINARY: Denies frequency, urgency, nocturia, hematuria or incontinence (Storage/Irritative symptoms.) Low urinary stream, straining to void, urinary intermittency or hesitancy, splitting of the voiding stream, terminal dribbling. ENDOCRINOLOGIC: Denies polyuria, polydipsia, polyphagia or heat/cold intolerances. HEMATOLOGIC: Denies thrombophilia/previous clots, or coagulopathy/bleeding disorders. ONCOLOGIC: Denies personal history of malignancy. DERMATOLOGIC: Denies rashes or pruritus. PSYCHIATRIC: Denies any suicidal or homicidal ideation. Denies hallucinations. PAST MEDICAL HISTORY: Type 2 diabetes Mellitus Hypertension Hyperlipidemia Chronic obstructive pulmonary disease Bipolar disorder PAST SURGICAL HISTORY: PPM / AICD placement in September 2017 PAST SOCIAL HISTORY: Patient lives alone.Patient admits to smoking cigarette 1 pack/day since age 21 yo and patient admits to use marijuan and cocaine last use was 4 days ago.Patient denies alcohol use. FAMILY HISTORY: Noncontributory Coded Allergies: varenicline (Unverified Allergy, Unknown, 09/07/22) PHYSICAL EXAM GENERAL APPEARANCE: The patient is awake, alert, and oriented, in no acute cardiopulmonary distress. NEUROLOGICAL: Cranial nerves II-XII grossly intact. Motor is 5/5 in bilateral upper and lower extremities proximal to distal. No sensory deficits. HEENT: Face is symmetric. Pupils are equal and reactive. Extraocular movements are intact. NECK: Supple. No JVD. No thyromegaly. No submental, submandibular, pre- /postauricular, occipital or supraclavicular lymphadenopathy. CHEST: Normal chest expansion. No Telemetry. LUNGS: Absence of any rales, rhonchi or any wheezing. CARDIOVASCULAR: Regular. S1 and S2 normal. No appreciable rubs, murmurs or gallops. ABDOMEN: Soft, nontender, and nondistended. There is no rebound, voluntary guarding, or rigidity. : Deferred. No Moreno. EXTREMITIES: Bilateral lower extremity edema more worse to left lower extremity. No clubbing. Good capillary refill. SKIN: No skin breakdown. Vital Sign (Last 24 Hours) 05/27/25 05/27/25 12:16 18:30 Temp 97.5 Pulse 85 Resp 20 B/P (MAP) 114/80 Pulse Ox 99 O2 Delivery Room Air* O2 Flow Rate 0 FiO2 21 LABS: Laboratory: Test 05/27/25 13:51 Range/Units White Blood Count 5.2 4.8-10.8 K/uL Red Blood Count 5.06 4.50-6.20 MIL/uL Hemoglobin 14.8 14.0-18.0 g/dL Hematocrit 46.0 42-54 % Mean Corpuscular Volume 90.9 79-99 fL Mean Corpuscular Hemoglobin 29.2 27.0-33.0 pg Mean Corpuscular Hemoglobin Concent 32.2 32.0-36.0 g/dL Red Cell Distribution Width 15.7 H 11.0-15.5 % Platelet Count 220 130-400 K/uL Mean Platelet Volume 9.2 7.5-10.5 fL Immature Granulocyte % (Auto) 0.2 0-1 % Neutrophils (%) (Auto) 55.7 40.0-77.0 % Lymphocytes (%) (Auto) 26.6 21.0-51.0 % Monocytes (%) (Auto) 12.0 3.0-13.0 % Eosinophils (%) (Auto) 4.4 0.0-8.0 % Basophils (%) (Auto) 1.1 0.0-5.0 % Neutrophils # (Auto) 2.9 1.8-7.7 K/uL Lymphocytes # (Auto) 1.4 1.0-4.8 K/uL Monocytes # (Auto) 0.6 0.1-1.0 K/uL Eosinophils # (Auto) 0.23 0.00-0.70 K/uL Basophils # (Auto) 0.06 0.00-0.20 K/uL Absolute Immature Granulocyte (auto 0.01 0-1 K/uL Nucleated Red Blood Cells 0.0 0.0-0.19 % Sodium Level 144 136-145 mmol/L Potassium Level 4.0 3.5-5.1 mmol/L Chloride Level 109 101-111 mmol/L Carbon Dioxide Level 30 21-32 mmol/L Blood Urea Nitrogen 13 7-18 mg/dL Creatinine 1.0 0.5-1.3 mg/dL Glomerular Filtration Rate Calc 85 >90 mL/min Random Glucose 96 70-105 mg/dL Total Calcium 8.7 8.5-10.1 mg/dL Troponin I High Sensitivity 6 4-75 ng/L B-Type Natriuretic Peptide 65 0-100 pg/mL DIAGNOSTICS / RADIOLOGY: [ ] ASSESSMENT: Left lower extremity edema POA Near syncope POA Cardiac Pacemaker/AICD POA Polysubstance abuse POA Nicotine dependence POA Bipolar Disorder POA History of hypertension POA History of Diabetes POA History hypertension POA History of hyperlipidemia POA PLAN: We will admit patient to medical floor We will start on heart healthy diet We will obtain arterial Doppler to left lower extremity We will start on famotidine 20 mg p.o. daily for GI prophylaxis We will replace electrolytes as needed per protocol We will add p.r.n. medication for pain, nausea and vomiting We will check labs in a.m. Further recommendations to follow depending upon hospitalization course ADVANCED CARE PLANNING 1. Which of the following were discussed? Hospice Care - No Therapeutic options - Yes Advance Directives - No Other discussions - 2. Discussed with who? Patient 3. Voluntary nature of this service was explained to the patient? Yes 4. Amount of time spent - ___23 min____ 5. Reviewed by Physician? (if this service was performed by NPP) Yes Patient seen and examined by me. Agree with note by NEUROLOGY PHYSICIAN ASSISTANT SEE ADDITIONAL ORDERS PER CHART DISCUSSED WITH NURSING STAFF DEIDRE ONEIL May 27, 2025 19:35
[2025-05-27 19:46] LABS: APPEARANCE,URINE CLEAR (CLEAR); GLUCOSE, URINE (UA) NEGATIVE (NEGATIVE); LEUKOCYTE ESTERASE ,URINE NEGATIVE Leu/uL (NEGATIVE); NITRATE,URINE NEGATIVE (NEGATIVE); OCCULT BLOOD,URINE NEGATIVE (NEGATIVE)
[2025-05-27 19:47] LABS: ADD UA MICROSCOPIC NO
[2025-05-27] MEDS ORDERED: PoTASSium chl 10% ELIXIR 20MEQ 20 MEQ/15 ML UDCUP PO PRN (20:00)
[2025-05-27] MEDS ORDERED: MAGNESIUM 2GM PREMIX 50ML 50 ML IV PRN (20:00)
--- NOTE | 2025-05-27 20:37 | HMCIMG ---
EXAMINATION: DUPLEX ULTRASOUND EXAMINATION OF THE BILATERAL LOWER EXTREMITY ARTERIES. CLINICAL HISTORY: Edema. COMPARISON: None. FINDINGS: Peak systolic velocities within the right lower arteries are as follows: Common femoral artery: 85 cm/s. Superficial femoral artery: 95 cm/s at proximal, 97 cm/s at mid, and 85 cm/s at distal segments. Popliteal artery: 79 cm/s at the proximal and 73 cm/s at the distal segments. Posterior tibial artery: 89 cm/s. Anterior tibial artery: 135 cm/s. Dorsalis pedis artery: 119 cm/s. The right lower limb arteries demonstrate triphasic waveforms in all arteries other than the infra-popliteal arteries, which demonstrate monophasic waveforms. Peak systolic velocities within the left lower arteries are as follows: Common femoral artery: 144 cm/s. Superficial femoral artery: 93 cm/s at proximal, 91 cm/s at mid, and 101 cm/s at distal segments. Popliteal artery: 71 cm/s at the proximal and 111 cm/s at the distal segments. Posterior tibial artery: 102 cm/s. Anterior tibial artery: 103 cm/s. Dorsalis pedis artery: 89 cm/s. The left lower limb arteries demonstrate triphasic waveforms in all arteries other than the infra-popliteal arteries, which demonstrate monophasic waveforms. There is intimal wall thickening in both the lower limb arteries. IMPRESSION: Mild intimal wall thickening in both the lower limb arteries. Both lower limb arteries demonstrate triphasic waveforms in all arteries other than the infra-popliteal arteries, which demonstrate monophasic waveforms. No flow-limiting lesions. /[place]
--- NOTE | 2025-05-27 22:11 | NUR ---
report given to nurse jackman in 4th floor. Patient is [id number], Respirations even and unlabored. No s/s of distress. denies any chest pain. afebrile. Patient refused iv catheter insertion. Attempted to educate of importance to have iv line for medications if needed. States only want a iv catheter until absolutely necessary for a medication. Addendum: 05/27/25 at 1342 by JORGE A MILLS RN RN refusal form was signed by patient.
[2025-05-27 23:01] VITALS: BP 121/77; PULSE 88; RESP 20; TEMP 98.1
[2025-05-27 23:30] VITALS: O2SAT 99
[2025-05-28 00:06] VITALS: BP 120/67; PULSE 88; RESP 20; TEMP 98.5
[2025-05-28 04:12] VITALS: BP 123/72; PULSE 78; RESP 20; TEMP 98
[2025-05-28 04:20] LABS: IMMATURE GRANULOCYTE ABSOLUTE 0.01 K/uL (0-1); NUCLEATED RED BLOOD CELLS 0.0 % (0.0-0.19); PLATELET COUNT (AUTO) 191 K/uL (130-400); RED BLOOD CELL COUNT(AUTO) 4.65 MIL/uL (4.50-6.20); RED CELL DISTRIBUTION WIDTH 15.7 % (11.0-15.5); WHITE BLOOD COUNT (AUTO) 4.9 K/uL (4.8-10.8)
[2025-05-28 04:26] LABS: ASPARTATE AMINOTRANSFERASE 24.0 U/L (10-37); CREATININE 1.0 mg/dL (0.5-1.3); GLOMERULAR FILTR. RATE CALC 85.0 mL/min (>90); GLUCOSE,RANDOM 123.0 mg/dL (70-105); SODIUM SERUM 141.0 mmol/L (136-145); TOTAL PROTEIN, SERUM 6.4 g/dL (6.0-8.3); UREA NITROGEN, BLOOD 24.0 mg/dL (7-18)
[2025-05-28 04:47] LABS: ERYTHROCYTE SEDIMENTATION RATE 9 MM/HR (0-20)
[2025-05-28] MEDS: PoTASSium chloRIDE 20MEQ ER 20 MEQ ERTAB PO PRN (06:11)
[2025-05-28 08:10] VITALS: BP 133/80; PULSE 72; RESP 12; TEMP 98
[2025-05-28 09:34] VITALS: O2SAT 98
[2025-05-28] MEDS: FAMOTIDINE 20MG TAB PO SCH (09:35)
[2025-05-28 11:45] VITALS: BP 127/77; PULSE 80; RESP 14; TEMP 98.2
--- NOTE | 2025-05-28 13:14 | PN ---
[facility] PROGRESS NOTE Date of Service: May 28, 2025 Time of Service: 13:[address] Raza Mccarthy SUBJECTIVE: [ 05/27 This is a 64 year old male with past medical history of diabetes, hypertension, hyperlipidemia, Chronic obstructive pulmonary disease, polysubstance use disorder, bipolar disorder and PPM/AICD placement who presents to the ED for multiple complaints such as bilateral lower extremity edema x1 month ,generalized weakness,and pacemaker battery low ,associated with dizziness and lightheadedness .Patient reports he feels he needs his pacemaker checked and on further evaluation patient reports the reason he wants to come to the hospital because his both lower extremities were swollen and every time he comes tot [facility] nothing is wrong with it so he waited until it becomes really worse so the doctor can see it.Patient states his left lower extremity is much more swollen getting more worse this past 6 days .Patient denies trauma,injury or any insect bite. Patient refuse to have IV insertion for emergency access,he said he will only have it if actually needed it.Patient reports the only medication he is taking is his for his Blood pressure but forgot the name of the meds.Patient reports he is from [place] but has no PCP and pinsetter mechanic automatic,he s aid he had one in [facility].Patient also reports he smoke 1 pack of cigarette per day and use marijuana and cocaine and last use was 3-4 days ago, Seen and examined patient in the Ed awake,alert and coherent.Patient denies fever,chills,chest pain,palpitation,syncope,dizziness,cough and shortness of breath. Latest vital signs temperature 97.5, heart rate 85, blood pressure 11 4/80 saturation 99% on room air. Labs: CBC unremarkable and chemistries normal.CXR result revealed internal cardiac pacemaker in the right anterior chest wall without radiographic evidence of hardware related complication. No acute cardiopulmonary abnormality. PPM/AICD device was interrogated in the ER and was normal. Venous Doppler to left lower extremity result revealed no e vidence of DVT.ER MD called and recommended to admit the patient. 05/28 patient was seen by nurse practitioner and physician during rounding in room 408. During evaluation patient continues to have left lower extremity/foot area edema plus one. As per patient has been getting better the swelling is decreasing. Regarding the near syncope patient does not have that feeling today but he did have a yesterday. We will order orthostatic vital signs. Also patient mentioned that he has a right pacemaker that was implanted in 2018 by [employer] in [place]. About a month ago he went to his pinsetter mechanic [employer] in [place] and was told that his battery is a low and that he is going to need a new battery exchange. Patient also underwent interrogation of the pacemaker here at the hospital on 05/27/2025 and was told that he has 100% battery four. For further evaluation we will consult pinsetter mechanic [employer] and also we will order 2D echo and ultrasound carotid. Patient stated he did have a cocaine and smokes marijuana three days ago. Drug test was not performed. Patient is also a heavy smoker but is refusing a nicotine patch. Patient also is refusing IV access all appropriate documentation was placed on patient's chart. We will continue to monitor patient in the meantime. A.m. labs.] REVIEW OF SYSTEMS CONSTITUTIONAL: Denies fevers, chills, or night sweats. No unintentional weight loss reported. NEUROLOGICAL: Denies headache, amaurosis fugax, motor weakness, sensory deficit, vertigo/spinning sensation, gait abnormalities, or tremors. ENT: No hearing loss, otalgia, otorrhea, rhinitis, rhinorrhea, hoarseness, or sore throat. CARDIOVASCULAR: Denies any exertional angina, dyspnea on exertion, orthopnea, paroxysmal nocturnal dyspnea, palpitations, life-threatening arrhythmias, claudication. PULMONARY: Denies any shortness of breath, cough, phlegm/sputum, hemoptysis, pleuritic chest pain. SLEEP: Denies morning headaches, daytime somnolence or napping. Denies difficulty falling asleep, staying asleep, waking from sleep. Denies knowledge of snoring. GASTROINTESTINAL: Denies any type of dysphagia to either liquids or solids. Denies nausea, vomiting, pyrosis, early satiety, abdominal pain, diarrhea, constipation, or changes in stool consistency or caliber. Denies coffee-ground emesis, hematemesis, hematochezia, or melanotic stools. GENITOURINARY: Denies frequency, urgency, nocturia, hematuria or incontinence (Storage/Irritative symptoms.) Low urinary stream, straining to void, urinary intermittency or hesitancy, splitting of the voiding stream, terminal dribbling. ENDOCRINOLOGIC: Denies polyuria, polydipsia, polyphagia or heat/cold intolerances. HEMATOLOGIC: Denies thrombophilia/previous clots, or coagulopathy/bleeding disorders. ONCOLOGIC: Denies personal history of malignancy. DERMATOLOGIC: Denies rashes or pruritus. PSYCHIATRIC: Denies any suicidal or homicidal ideation. Denies hallucinations. PHYSICAL EXAM GENERAL APPEARANCE: The patient is awake, alert, and oriented, in no acute cardiopulmonary distress. NEUROLOGICAL: Cranial nerves II-XII grossly intact. Motor is 5/5 in bilateral upper and lower extremities proximal to distal. No sensory deficits. HEENT: Face is symmetric. Pupils are equal and reactive. Extraocular movements are intact. NECK: Supple. No JVD. No thyromegaly. No submental, submandibular, pre- /postauricular, occipital or supraclavicular lymphadenopathy. CHEST: Normal chest expansion. No Telemetry. LUNGS: Absence of any rales, rhonchi or any wheezing. CARDIOVASCULAR: Regular. S1 and S2 normal. No appreciable rubs, murmurs or gallops. ABDOMEN: Soft, nontender, and nondistended. There is no rebound, voluntary guarding, or rigidity. : Deferred. No Moreno. EXTREMITIES: Left lower extremity edema plus one No clubbing. Good capillary refill. SKIN: No skin breakdown. Vital Signs (last 8hr) Date Time Temp Pulse Resp B/P (MAP) Pulse Ox O2 Delivery O2 Flow Rate FiO2 05/28/25 11:45 98.2 80 14 127/77 100 Room Air 05/28/25 08:10 98.1 72 12 133/80 98 Room Air LABS: Laboratory: Test 05/28/25 05:49 05/28/25 03:54 05/27/25 19:00 05/27/25 13:51 Range/Units Whole Blood Glucose 132 H 70-110 MG/DL White Blood Count 4.9 4.8-10.8 K/uL Red Blood Count 4.65 4.50-6.20 MIL/uL Hemoglobin 13.5 L 14.0-18.0 g/dL Hematocrit 42.8 42-54 % Mean Corpuscular Volume 92.0 79-99 fL Mean Corpuscular Hemoglobin 29.0 27.0-33.0 pg Mean Corpuscular Hemoglobin Concent 31.5 L 32.0-36.0 g/dL Red Cell Distribution Width 15.7 H 11.0-15.5 % Platelet Count 191 130-400 K/uL Mean Platelet Volume 9.2 7.5-10.5 fL Immature Granulocyte % (Auto) 0.2 0-1 % Neutrophils (%) (Auto) 52.3 40.0-77.0 % Lymphocytes (%) (Auto) 28.5 21.0-51.0 % Monocytes (%) (Auto) 13.8 H 3.0-13.0 % Eosinophils (%) (Auto) 4.0 0.0-8.0 % Basophils (%) (Auto) 1.2 0.0-5.0 % Neutrophils # (Auto) 2.6 1.8-7.7 K/uL Lymphocytes # (Auto) 1.4 1.0-4.8 K/uL Monocytes # (Auto) 0.7 0.1-1.0 K/uL Eosinophils # (Auto) 0.20 0.00-0.70 K/uL Basophils # (Auto) 0.06 0.00-0.20 K/uL Absolute Immature Granulocyte (auto 0.01 0-1 K/uL Nucleated Red Blood Cells 0.0 0.0-0.19 % Erythrocyte Sedimentation Rate 9 0-20 MM/HR Sodium Level 141 136-145 mmol/L Potassium Level 3.7 3.5-5.1 mmol/L Chloride Level 111 101-111 mmol/L Carbon Dioxide Level 26 21-32 mmol/L Blood Urea Nitrogen 24 H 7-18 mg/dL Creatinine 1.0 0.5-1.3 mg/dL Glomerular Filtration Rate Calc 85 >90 mL/min Random Glucose 123 H 70-105 mg/dL Total Calcium 8.3 L 8.5-10.1 mg/dL Magnesium Level 1.90 1.80-2.40 mg/dL Total Bilirubin 0.2 0.2-1.0 mg/dL Aspartate Amino Transf (AST/SGOT) 24 10-37 U/L Alanine Aminotransferase (ALT/SGPT) 23 12-78 U/L Alkaline Phosphatase 50 50-136 U/L Total Protein 6.4 6.0-8.3 g/dL Albumin 3.1 L 3.5-5.0 g/dL Urine Color LIGHT-YELLOW YELLOW Urine Appearance CLEAR CLEAR Urine pH 5.5 5.0-8.0 Urine Specific [place] 1.021 1.001-1.031 Urine Protein NEGATIVE NEGATIVE mg/dL Urine Glucose (UA) NEGATIVE NEGATIVE mg/dL Urine Ketones NEGATIVE NEGATIVE mg/dL Urine Occult Blood NEGATIVE NEGATIVE Urine Nitrate NEGATIVE NEGATIVE Urine Bilirubin NEGATIVE NEGATIVE mg/dL Urine Urobilinogen 0.2 0.2-1.0 mg/dL Urine Leukocyte Esterase NEGATIVE NEGATIVE [place]/uL Troponin I High Sensitivity 6 4-75 ng/L B-Type Natriuretic Peptide 65 0-100 pg/mL Current Medications Medications (Trade) Dose Ordered Sig/Rigo Route PRN Reason Start Time Stop Time Status Last Admin Dose Admin Acetaminophen (TYLenol 325MG TAB) 650 mg Q4H PRN PO MILD PAIN (1-3) 05/27/25 19:30 06/26/25 19:29 05/27/25 21:48 650 MG Acetaminophen (TYLenol 325MG TAB) 650 mg Q6H PRN PO TEMPERATURE GREATER THAN 101.5 05/27/25 19:30 06/26/25 19:29 Famotidine (Pepcid 20mg Tab) 20 mg DAILY PO 05/28/25 09:00 06/27/25 08:59 05/28/25 09:35 20 MG Magnesium Sulfate 50 ml @ 0 mls/hr PROTOCOL PRN IV OTHER [SEE ORDER COMMENTS] 05/27/25 20:00 06/26/25 19:59 Ondansetron HCl (zoFRAN 4MG INJ) 4 mg Q6H PRN IV NAUSEA/VOMITING 05/27/25 19:30 06/26/25 19:29 Potassium Chloride 100 ml @ 100 mls/hr AD PRN IV POTASSIUM PROTOCOL 05/27/25 20:00 06/26/25 19:59 Potassium Chloride (K-Dur/Klor-Con 20meq) 20 meq AD PRN PO POTASSIUM PROTOCOL 05/27/25 20:00 06/26/25 19:59 05/28/25 09:35 20 MEQ Potassium Chloride (KCl 10% Elixir 20meq/15ml) 20 meq AD PRN PO POTASSIUM PROTOCOL 05/27/25 20:00 06/26/25 19:59 DIAGNOSTICS / RADIOLOGY: [ ] ASSESSMENT: Left lower extremity edema POA Near syncope POA Cardiac Pacemaker/AICD POA Polysubstance abuse POA Nicotine dependence POA Bipolar Disorder POA History of hypertension POA History of Diabetes POA History hypertension POA History of hyperlipidemia POA PLAN: During evaluation patient continues to have left lower extremity/foot area edema plus one. As per patient has been getting better the swelling is decreasing. Regarding the near syncope patient does not have that feeling today but he did have a yesterday. We will order orthostatic vital signs. Also patient mentioned that he has a right pacemaker that was implanted in 2018 by [employer]etter [employer] in [place]. About a month ago he went to his pinsetter mechanic [employer] in [place] and was told that his battery is a low and that he is going to need a new battery exchange. Patient also underwent interrogation of the pacemaker here at the hospital on 05/27/2025 and was told that he has 100% battery four. For further evaluation we will consult pinsetter mechanic [employer] and also we will order 2D echo and ultrasound carotid. Patient stated he did have a cocaine and smokes marijuana three days ago. Drug test was not performed. Patient is also a heavy smoker but is refusing a nicotine patch. Patient also is refusing IV access all appropriate documentation was placed on patient's chart. We will continue to monitor patient in the meantime. A.m. labs. Continue heart healthy diet We will start on famotidine 20 mg p.o. daily for GI prophylaxis We will replace electrolytes as needed per protocol We will add p.r.n. medication for pain, nausea and vomiting Further recommendations to follow depending upon hospitalization course Patient denies taking any medication outpatient/at home ATTESTATION BY PHYSICIAN I have seen and examined the patient. I reviewed the documentation, medical decision making, and treatment plan as noted by the mid-level provider above. I agree with the findings and plan of care. Raza Garcia MD, KATARZYNA B ASSISTANT ACCOUNTING MANAGER May 28, 2025 13:14
--- NOTE | 2025-05-28 15:27 | NUR ---
DCP CM MET WITH PT THIS AFTERNOON, INITIAL ASSESSMENT DONE. PATIENT IS INDEPENDENT PRIOR TO HOSPITALIZATION, LIVES AT HOME ALONE, SON/DAUGHTER LIVES CLOSE BY. DENIES ANY EQUIPMENT/SERVICES. USES [facility] FOR MED. FEELS SAFE TO GO BACK HOME, [address], SON ABLE TO ASSIST WITH TRANSPORTATION AND NEEDS NECESSARY. DCP HOME ONCE STABLE. CM TO CONTINUE TO FOLLOW UP.
[2025-05-28 16:00] VITALS: BP 145/83; PULSE 83; RESP 15; TEMP 98.2
--- NOTE | 2025-05-28 19:26 | HMCIMG ---
EXAM US DUPLEX BILATERAL CAROTID AND VERTEBRAL ARTERIES CLINICAL HISTORY Syncope TECHNIQUE Real-time duplex ultrasound of the bilateral carotid and vertebral arteries using dickerson-scale imaging, color Doppler, and spectral waveform analysis COMPARISON None provided FINDINGS RIGHT COMMON CAROTID ARTERY Peak systolic velocity measures approximately 87 cm/s. No occlusion or hemodynamically significant stenosis. RIGHT INTERNAL CAROTID ARTERY Peak systolic velocity measures approximately 73 cm/s with an ICA/CCA PSV ratio of 0.8. Waveforms are normal. No occlusion or hemodynamically significant stenosis by NASCET criteria. RIGHT EXTERNAL CAROTID ARTERY Peak systolic velocity measures approximately 104 cm/s. No focal high-grade stenosis. RIGHT VERTEBRAL ARTERY Flow is antegrade with peak systolic velocity of approximately 50 cm/s. No evidence of steal. LEFT COMMON CAROTID ARTERY Peak systolic velocity measures approximately 95 cm/s. No occlusion or hemodynamically significant stenosis. LEFT INTERNAL CAROTID ARTERY Peak systolic velocity measures approximately 83 cm/s with an ICA/CCA PSV ratio of 0.9. Waveforms are normal. No occlusion or hemodynamically significant stenosis by NASCET criteria. LEFT EXTERNAL CAROTID ARTERY Peak systolic velocity measures approximately 76 cm/s. No focal high-grade stenosis. LEFT VERTEBRAL ARTERY Flow is antegrade with peak systolic velocity of approximately 51 cm/s. No evidence of steal. SOFT TISSUES No incidental neck mass or other abnormality is identified. IMPRESSION * Bilateral carotid duplex velocities and ICA/CCA ratios within normal limits with no hemodynamically significant carotid stenosis by NASCET criteria. * Bilateral vertebral arteries demonstrate normal antegrade flow without evidence of vertebrobasilar insufficiency. /[place]
--- NOTE | 2025-05-28 19:40 | NUR ---
AMA Patient called via call lowery, patient dressed stating "im going home now,i dont need anything else, dont want to see any more doctors" explained to patient pending 2 d echo and carotid ultrasound, pending dr. jenny stelee to see patient in the morning, patient states "i dont need anything else, patient calling family to be picked up", explained to patient importance of tests pending , patient states "im done leaving now patient getting personal belongings together,
--- NOTE | 2025-05-28 19:42 | NUR ---
informed called hospitalist parks and recreation worker chandrakant gonzalez informed of patient leaving ama, unable to convince patient to stay
--- NOTE | 2025-05-28 19:43 | NUR ---
orlin ordaz signed patient understands what he is signing,no iv in patient, patient refused to be taken down in wheel
--- NOTE | 2025-05-28 19:45 | NUR ---
ama patient refused wheel chair , patient walked out of unit walking on his own, steady gait, no distress noted, personal belongings with patient
--- NOTE | 2025-05-28 19:47 | NUR ---
housekeeping/laundry supervisor housekeeping/laundry supervisor manav blackman rn informed of patients leaving [facility]a
--- NOTE | 2025-05-28 19:48 | DS ---
Discharge Summary Automation Tender(s): Received call from nurse Cassidy patient left AMA . Assessment/Plan: ASSESSMENT: Left lower extremity edema POA Near syncope POA Cardiac Pacemaker/AICD POA Polysubstance abuse POA Nicotine dependence POA Bipolar Disorder POA History of hypertension POA History of Diabetes POA History hypertension POA History of hyperlipidemia POA PLAN: During evaluation patient continues to have left lower extremity/foot area edema plus one. As per patient has been getting better the swelling is decreasing. Regarding the near syncope patient does not have that feeling today but he did have a yesterday. We will order orthostatic vital signs. Also patient mentioned that he has a right pacemaker that was implanted in 2018 by supervisor [employer] in [place]. About a month ago he went to his supervisor [employer] in [place] and was told that his battery is a low and that he is going to need a new battery exchange. Patient also underwent interrogation of the pacemaker here at the hospital on 05/27/2025 and was told that he has 100% battery four. For further evaluation we will consult supervisor [employer] and also we will order 2D echo and ultrasound carotid. Patient stated he did have a cocaine and smokes marijuana three days ago. Drug test was not performed. Patient is also a heavy smoker but is refusing a nicotine patch. Patient also is refusing IV access all appropriate documentation was placed on patient's chart. We will continue to monitor patient in the meantime. A.m. labs. Continue heart healthy diet We will start on famotidine 20 mg p.o. daily for GI prophylaxis We will replace electrolytes as needed per protocol We will add p.r.n. medication for pain, nausea and vomiting Further recommendations to follow depending upon hospitalization course Patient denies taking any medication outpatient/at home Home Medications: Discontinued Scripts Ibuprofen (Ibuprofen 800 mg Tab) 800 Mg Tab, 800 MG PO Q8H PRN for PAIN, #30 TAB 0 Refills Prov:SINGH LIZARRAGA MD 09/07/22 Omeprazole Magnesium (Prilosec Otc) 20 Mg Tablet.dr, 20 MG PO DAILY, #30 TAB Prov:DEMETRA LOYA MD 12/11/21 Ondansetron (Ondansetron Odt) 4 Mg Tab.rapdis, 8 MG PO Q8H PRN for NAUSEA/VOMITING, #20 TAB Prov:DEMETRA LOYA MD 12/11/21 DEIDRE ONEIL PROCESS IMPROVEMENT CONSULTANT May 28, 2025 19:48
--- NOTE | 2025-05-29 11:11 | EKG ---
[facility] Test Date: 2025-05-27 Test Time: 14:23:14 Pat Name: LOLY HARTLEY Department: [facility] Room: 408 1 Gender: M Manager Business: [id number] : 1960 Requested By: LESVIA ROBERTS Order Number: [id number] Reading MD: Uzma Henry Measurements Intervals Woody Rate: 68 P: 62 ME: 166 QRS: 10 QRSD: 80 T: 34 QT: 420 QTc: 446 Interpretive Statements Sinus rhythm Compared to ECG 06/03/2024 08:59:30 No significant changes Electronically Signed On 06-01-2025 08:50:12 PRODUCTION TEAM MANAGER by Uzma Henry Please click the below link to view image of tracing.
== END 2025-05-28 19:47 | disposition left against medical advice (07) ==
LOC: EDH 12:15 → EDHIP 19:25 → 4BH 22:13
PROVIDERS: ADMIT Internal Medicine; ATTEND Internal Medicine
DX: R60.0 Localized edema (principal); R55 Syncope and collapse; R53.1 Weakness; R42 Dizziness and giddiness; R11.2 Nausea with vomiting, unspecified; M54.50 Low back pain, unspecified; E11.9 Type 2 diabetes mellitus without complications; E78.5 Hyperlipidemia, unspecified; I10 Essential (primary) hypertension; F31.9 Bipolar disorder, unspecified; J44.9 Chronic obstructive pulmonary disease, unspecified; F17.210 Nicotine dependence, cigarettes, uncomplicated; Z95.810 Presence of automatic (implantable) cardiac defibrillator; Z79.899 Other long term (current) drug therapy; Z98.890 Other specified postprocedural states
CPT/HCPCS: 99285; 84484; 80048; 83880; 85025 ×2; 81003; 36415 ×2; 71045; 93971; 93925; 93005; 83735; 80053; 85651; 82948; 93880; G0378 ×24